=== PATIENT | male | born 1940 | race African-American/Black ===

== ENCOUNTER 2021-12-24 21:06 | Inpatient (IN) | payer MEDICARE, MEDICAID ==
[~2021-12-24] VITALS: Ht 175.3 cm; Wt 62.3 kg
[~2021-12-24 21:06] MED LIST: ACET325C PO; ALBU2.5V5 NEB; AMOX1TAB11 PO; ASCO500T4 PO; ASPI-482 PO; ASPI-630 PO; ATOR10TA60 PO; CALC-77 PO; CALC600T60 PO; CARV3.12 PO; ENOX40DI3 SQ; FOLI0.8T21 PO; FURO40TA4 PO; GUAI5LIQ PO; HTN med; HYDR12.575 PO; IPRA3AMP29 NEB; LOVA10TA PO; METO25TA4 PO; METO50TA6 PO; MULT1TAB50 PO; OXYC10TA PO; OXYC1TAB19 PO; OXYC5CAP PO; PANT40TA77 PO; POTA-121 PO; PRED-220 PO; PRED2.5T PO; PRED20TA PO; TAMS0.4C2 PO; TORS20TA2 PO
[2021-12-24 21:30] LABS: BASE EXCESS COOX -2 mmol/L (-3-3); HCO3 COOX 23 mmol/L (21-28); METHEMOGLOBIN 0.3 % (0.0-1.9); OXYHEMOGLOBIN 91.4 %; PCO2 COOX 41 mmHg (35-46); PO2 COOX 72 mmHg (65-108); SAT O2 COOX 92 % (92-99)
--- NOTE | 2021-12-24 21:31 | PHYS DOC ---
Past Medical History Past Medical History: Cancer, CHF, COPD, High Cholesterol, Hypertension Additional Past Medical Histor: Hepatitis C Past Surgical History: Hip Replacement, Other Additional Past Surgical Histo: BLEEDING ULCER, AV FISTULA LEFT ARM Smoking Status: Former Smoker Alcohol Use: Sober Drug Use: None General Adult EDM: Chief Complaint: DYSPNEA/RESPIRATORY DISTRESS HPI: HPI: Patient is a 81 year old male with history of afib, heart failure, COPD, and ESRD on hemodialysis who presents to ED via EMS with shortness of breath. Around 9 am, he started to develop shortness of breath while watching TV. Also, his SBP was elevated in the 200s at the time. Initially, his symptoms improved after receiving medications. Later in the day, his shortness of breath wo rsened, he was placed on 3 L NC, and EMS was called. Upon EMS arrival, spO2 was in the 70s and was placed on NRB. Associated symptoms included lightheadedness, dyspnea on exertion, and weakness. He denies sick contacts, fevers, chills, cough, nausea, vomiting, and abdominal pain. He recieves hemodialysis on MWF and produces a small amount of urine. Of note, he was positive for COVID about a month ago. Review of Systems: Review of Systems: Constitutional: Positive weight loss. Denies fever or chills. Eyes: Denies change in visual acuity. HENT: Denies nasal congestion or sore throat. Respiratory: Denies cough. Positive for shortness of breath. Cardiovascular: Denies chest pain or edema. Positive for dyspnea on exertion GI: Denies abdominal pain, nausea, vomiting, bloody stools or diarrhea. : Positive oliguria. Musculoskeletal: Denies back pain or joint pain. Integument: Denies rash. Neurologic: Denies headache and sensory changes. Positive for focal weakness and lightheadedness Endocrine: Denies polyuria or polydipsia. Lymphatic: Denies swollen glands. Psychiatric: Denies depression or anxiety. Heart Score: C/O Chest Pain: N/A Risk Factors: Risk Factors: DM, Current or recent (<one month) smoker, HTN, HLP, family history of CAD, obesity. Risk Scores: Score 0 - 3: 2.5% MACE over next 6 weeks - Discharge Home Score 4 - 6: 20.3% MACE over next 6 weeks - Admit for Clinical Observation Score 7 - 10: 72.7% MACE over next 6 weeks - Early Invasive Strategies Allergies: Allergies: Allergies Coded Allergies Type Severity Reaction Last Updated Verified No Known Medication Allergies Allergy Unknown 06/02/16 Yes Physical Exam: PE: Constitutional: respiratory distress, alert, awake HENT: Normocephalic, atraumatic, bilateral external ears normal, oropharynx moist, no oral exudates, nose normal. Eyes: PERRLA, EOMI, conjunctiva normal, no discharge. Neck: Normal range of motion, no tenderness, supple, no stridor. Cardiovascular: increased rate, irregularly irregular rhythm, no murmurs Lungs & Thorax: accessory muscles are in use, decreased air movement throughout, expiratory rhonci throughout Abdomen: Bowel sounds normal, soft, no tenderness, no masses, no pulsatile masses. Skin: Cool, dry, no erythema, no rash. Back: No tenderness, no CVA tenderness. Extremities: No tenderness, no cyanosis, no clubbing, ROM intact, trace bilateral pedal edema. Fistual in left upper extremity Neurologic: Alert and oriented X 3, normal motor function, normal sensory function, no focal deficits noted. Psychologic: Affect normal, judgement normal, mood normal. Current Patient Data: Vital Signs: Vital Signs Date Time Temp Pulse Resp B/P (MAP) Pulse Ox O2 Delivery O2 Flow Rate FiO2 12/24/21 21:15 97.6 130 29 157/71 (99) 95 NonRebreather Mask 9.0 97.6 EKG: EKG: [] Performed at 2113 Rate [address] RVR No [address] elevation No ST depression No acute [place] Radiology/Procedures: Radiology/Procedures: [] Impression: Wet read chest x-ray Cardiomegaly Blebs Questionable effusion left lower lobe Course & Med Decision Making: Course & Med Decision Making Pertinent Labs and Imaging studies reviewed. (See chart for details) [] Patient was evaluated for chief complaint. Work-up consisted of laboratory analysis radiologic imaging and EKG. Results reviewed and discussed with patient. Shortly after arrival patient was placed on BiPAP. Patient was found to have a heart rate in the 130s 140s suspected A. fib RVR. Once placed on BiPAP patient's heart rate improved to low 100s. Elected to treat patient with a dose of Cardizem 20 mg IV push. Patient's heart rate improved to the 90s appears to be sinus. Patient admitted to the hospitalist with cardiology and nephrology consults. Dm Disclaimer: Dm Disclaimer: This electronic medical record was generated, in whole or in part, using a voice recognition dictation system. Departure Departure Impression: Primary Impression: Atrial fibrillation with RVR Additional Impressions: CHF exacerbation Renal failure Disposition: ADMITTED INPATIENT Condition: STABLE Referrals: UNKNOWN PCP NAME (PCP) PATI GOMEZ DO Dec 24, 2021 21:31
[2021-12-24 21:46] LABS: BASO # 0.1 x10^3/uL (0.0-0.2); BASO % 1 % (0-3); EOS % 0 % (0-3); HEMATOCRIT 35.8 % (39.0-53.0); HEMOGLOBIN 11.3 g/dL (13.0-17.5); LYMPH # 1.1 x10^3/uL (1.0-4.8); LYMPH % 9 % (24-48); MEAN CORPUSCULAR HEMOGLOBIN 30 pg (25-35); MEAN CORPUSCULAR HGB CONC 32 g/dL (31-37); MEAN CORPUSCULAR VOLUME 93 fL (79-100); MONO # 0.4 x10^3/uL (0.0-1.1); MONO % 4 % (0-9); NEUT # 10.4 x10^3/uL (1.8-7.7); NEUT % 86 % (31-73); PLATELET COUNT 301 x10^3/uL (140-400); RED BLOOD COUNT 3.83 x10^6/uL (4.30-5.70); RED CELL DISTRIBUTION WIDTH 14.7 % (11.5-14.5)
[2021-12-24 21:52] LABS: CALCIUM 7.7 mg/dL (8.5-10.1); CREATININE 6.4 mg/dL (0.7-1.3); GFR 10.2; POTASSIUM 3.9 mmol/L (3.5-5.1)
[2021-12-24 21:54] LABS: ALBUMIN 2.9 g/dL (3.4-5.0); ALBUMIN/GLOBULIN RATIO 0.5 (1.0-1.7); MAGNESIUM 1.7 mg/dL (1.8-2.4); TOTAL BILIRUBIN 0.7 mg/dL (0.2-1.0); TOTAL PROTEIN 8.5 g/dL (6.4-8.2)
[2021-12-24] MEDS ORDERED: dilTIAZem HCL 125 MG in IV DEXTROSE 5% 100ML 100 ML IV PRN (22:45)
[2021-12-24 23:11] LABS: BASE EXCESS ABG 3 mmol/L (-3-3); HCO3 ABG 28 mmol/L (21-28); PCO2 ABG 42 mmHg (35-46); PO2 ABG 67 mmHg (65-108); SAT O2 ABG 92 % (92-99)
--- NOTE | 2021-12-24 23:17 | RAD ---
Exam: Chest one view INDICATION: Shortness of breath TECHNIQUE: Frontal view of the chest Comparisons: 03/24/2020 FINDINGS: The cardiomediastinal silhouette and pulmonary vessels are within normal limits. Extensive lower lobe airspace disease. No pleural fusion. IMPRESSION: Extensive by basilar airspace disease favored to be infectious or inflammatory in etiology. Electronically signed by: Geoffrey Martin MD (12/24/2021 11:15 PM) [facility]
[2021-12-24 23:43] VITALS: BP 103/72
--- NOTE | 2021-12-24 23:50 | NUR ---
The patient, GONZALEZ BEE, 81 y/o, M admitted by TAHIR VARNER MD, was given written information regarding hospital policies, unit procedures and contact persons. Valuable were checked and documented. Pt a/ox3, oriented to unit and staff. poc explained, pt verbalized understanding. History and assessment complete and documented. Pt on 4l nc, call light in reached will cont to monitor pt status and safety. pmrn
[2021-12-24 23:55] LABS: FIO2 ABG 40 (BIPAP)
[2021-12-25] MEDS ORDERED: HYDR-2761 PO (00:24)
[2021-12-25] MEDS ORDERED: OMEP20TA63 PO (00:24)
[2021-12-25] MEDS ORDERED: ACET325T9 PO (00:24)
[2021-12-25 03:00] VITALS: BP 101/61
--- NOTE | 2021-12-25 05:59 | EKG ---
[facility] [address] [place] [address] Test Date: 2021-12-24 Test Time: 21:13:24 Pat Name: GONZALEZ BEE Department: Room: 2 Gender: M Humanities Department Chair: : 1940 Requested By: PATI GOMEZ Order Number: [id number] Reading MD: Benito Bolaños MD Measurements Intervals [place] Rate: 139 P: 0 MD: 64 QRS: 57 QRSD: 90 T: -148 QT: 230 QTc: 354 Interpretive Statements Probable atrial fibrillation/SVT Electronically Signed On 12-27-2021 17:55:53 CDT by Benito Bolaños MD
[2021-12-25 07:00] VITALS: BP 144/81
[2021-12-25] MEDS ORDERED: IV NORMAL SALINE 1000ML BAG 1,000 ML IV PRN ×2 (08:30)
[2021-12-25] MEDS ORDERED: DIALYSIS PATIENT. MC PRN (08:30)
--- NOTE | 2021-12-25 08:31 | PDOC1 ---
History and Physical Date of Admission Date of Admission DATE: 12/25/21 TIME: 08:30 Identification/Chief Complaint Chief Complaint Shortness of breath Source Source: Patient History of Present Illness History of Present Illness Mr Amin is an 81 yo male with history of afib, heart failure, COPD, and ESRD on hemodialysis who presents to ED via EMS with shortness of breath. At 0900 on 12/24/21 he started to develop shortness of breath while watching TV and notes his blood pressure was systolic in the 200s. He normally wears 3 L/min nasal cannula oxygen but upon EMS arrival, spO2 was in the 70s and was placed on NRB. He denies sick contacts, fevers, chills, cough, nausea, vomiting, and abdominal pain. He receives hemodialysis on MWF and produces a small amount of urine. Of note, he was positive for COVID about a month ago at [facility] and has been rehabilitating in SNF. 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 He was noted to be in atrial fibrillation with rapid ventricular response, given IV cardizem bolus and improved, seen on dialysis in sinus rhythm. Chest radiograph with bibasilar airspace disease Labs WBC 12, Hb 11.3, platelets 301, NA 139, K3.9, BUN 23, creatinine 6.4, glucose 138, calcium 7.7, magnesium 1.7, albumin 2.9 LFTs otherwise within normal laboratory limits, high-sensitivity troponin is 217, NT proBNP is greater than 35,000, rapid COVID-19 is negative, ABG on 9 L 7.37/41/72. Admitted for further care with pulmonology cardiology and nephrology consultation Past Medical History Cardiovascular: CHF, HTN, Pulmonary hypertension Pulmonary: COPD, Pneumonia CENTRAL NERVOUS SYSTEM: Dementia GI: GERD, GI bleed, Peptic Ulcer disease Heme/Onc: No pertinent hx Hepatobiliary: Hep A/B/C Psych: No pertinent hx Musculoskeletal: Osteoarthritis Rheumatologic: No pertinent hx Infectious disease: No pertinent hx Renal/: Chronic renal insuff, Prostate Ca. Endocrine: No pertinent hx Past Surgical History Past Surgical History: Other Family History Family History: Diabetes, Heart Disease, Hypertension Social History Smoke: No ALCOHOL: none Drugs: Heroin Current Problem List Problem List Problems Medical Problems: (1) Atrial fibrillation with RVR Status: Acute (2) CHF exacerbation Status: Acute (3) Renal failure Status: Acute Current Medications Current Medications Current Medications Diltiazem HCl (Cardizem Iv Push) 20 mg 1X ONCE IVP Last administered on 12/24/21at 22:50; Start 12/24/21 at 22:45; Stop 12/24/21 at 22:46; Status DC Diltiazem HCl 125 mg/Sodium Chloride 125 ml @ 5 mls/hr CONT PRN IV PER PROTOCOL; Start 12/24/21 at 22:45; Status Cancel Diltiazem HCl 125 mg/Dextrose 125 ml @ 5 mls/hr CONT PRN IV PER PROTOCOL; Start 12/24/21 at 22:45 Active Scripts Active Karla-Yamileth Tablet (Folic Acid/Vitamin B Comp W-C) 0.8 Mg Tablet 1 Tab PO DAILY Reported Tylenol (Acetaminophen) 325 Mg Tablet 325 Tab PO QID PRN Prilosec Otc (Omeprazole Magnesium) 20 Mg Tablet.dr 1 Tab PO DAILY 30 Days Hydrocodone-Apap 5-325 (Hydrocodone Bit/Acetaminophen) 1 Tab Tablet 1 Tab PO PRN Q6HRS PRN Metoprolol Tartrate 50 Mg Tablet 1 Tab PO BID Aspirin 81 Mg Tab.chew 1 Tab PO DAILY Albuterol Sulfate Neb Soln (Albuterol Sulfate) 2.5 Mg/3 Ml Vial.neb 2.5 Mg NEB PRN Q4HRS PRN Vitamin C (Ascorbic Acid) 500 Mg Tablet 500 Mg PO BID Atorvastatin Calcium 10 Mg Tablet 10 Mg PO HS Allergies Allergies: Coded Allergies: No Known Medication Allergies (Verified Allergy, Unknown, 06/02/16) ROS General: YES: Fatigue, Malaise; No: Chills, Night Sweats, Appetite, Other PSYCHOLOGICAL ROS: No: Anxiety, Behavioral Disorder, Concentration difficultie, Decreased libido, Depression, Disorientation, Hallucinations, Hostility, Irritablity, Memory difficulties, Mood Swings, Obsessive thoughts, Physical abuse, Sexual abuse, Sleep disturbances, Suicidal ideation, Other Eyes: No Blurry vision, No Decreased vision, No Double vision, No Dry eyes, No Excessive tearing, No Eye Pain, No Itchy Eyes, No Loss of vision, No Photophobia, No Scotomata, No Uses contacts, No Uses glasses, No Other HEENT: No: Heacaches, Visual Changes, Hearing change, Nasal congestion, Nasal discharge, Oral lesions, Sinus pain, Sore Throat, Epistaxis, Sneezing, Snoring, Tinnitus, Vertigo, Vocal changes, Other ALLERGY AND IMMUNOLOGY: No: Hives, Insect Bite Sensitivity, Itchy/Watery Eyes, Nasal Congestion, Post Nasal Drip, Seasonal Allergies, Other Hematological and Lymphatic: No: Bleeding Problems, Blood Clots, Blood Transfusions, Brusing, Night Sweats, Pallor, Swollen Lymph Nodes, Other ENDOCRINE: No: Breast Changes, Galactorrhea, Hair Pattern Changes, Hot Flashes, Malaise/lethargy, Mood Swings, Palpitations, Polydipsia/polyuria, Skin Changes, Temperature Intolerance, Unexpected Weight Changes, Other Breast: No New/Changing Breast Lumps, No Nipple changes, No Nipple discharge, No Other Respiratory: YES: Cough, Shortness of breath, SOB with excertion; No: Hemoptysis, Orthopnea, Pleuritic Pain, Sputum Changes, Stridor, Tachypnea, Wheezing, Other Cardiovascular: No Chest Pain, No Palpitations, No Orthopnea, No Paroxysmal Noc. Dyspnea, No Edema, No Lt Headedness, No Other Gastrointestinal: Yes Nausea; No Vomiting, No Abdominal Pain, No Diarrhea, No Constipation, No Melena, No Hematochezia, No Other Genitourinary: No Dysuria, No Frequency, No Incontinence, No Hematuria, No Retention, No Discharge, No Urgency, No Pain, No Flank Pain, No Other, No , No , No , No , No , No , No Musculoskeletal: No Gait Disturbance, No Joint Pain, No Joint Stiffness, No Joint Swelling, No Muscle Pain, No Muscular Weakness, No Pain In:, No Swelling In:, No Other Neurological: No Behavorial Changes, No Bowel/Bladder ControlChng, No Confusion, No Dizziness, No Gait Disturbance, No Headaches, No Impaired Coord/balance, No Memory Loss, No Numbness/Tingling, No Seizures, No Speech Problems, No Tremors, No Visual Changes, No Weakness, No Other Skin: No Dry Skin, No Eczema, No Hair Changes, No Lumps, No Mole Changes, No Mottling, No Nail Changes, No Pruritus, No Rash, No Skin Lesion Changes, No Other, No Acne Physical Exam General: Alert, Oriented X3, Cooperative, moderate distress HEENT: Atraumatic, PERRLA, EOMI, Mucous membr. moist/pink Lungs: Other (Bibasilar crackles) Heart: S1S2, RRR, no thrills, no rubs, no gallops, no murmurs Rectal Exam: not examined Extremities: No clubbing, No cyanosis, No edema, Normal pulses, No tenderness/swelling Skin: No rashes, No breakdown, No significant lesion Neuro: Normal gait, Normal speech, Strength at 5/5 X4 ext, Normal tone, Sensation intact, Cranial nerves 3-12 NL, Reflexes 2+ Psych/Mental Status: Mental status NL, Mood NL Vitals Vitals Vital Signs Date Time Temp Pulse Resp B/P (MAP) Pulse Ox O2 Delivery O2 Flow Rate FiO2 12/25/21 03:00 97.6 93 18 101/61 (74) 93 Nasal Cannula 4.0 97.6 Labs Labs Laboratory Tests Test 12/24/21 21:20 12/24/21 21:25 12/24/21 23:00 12/25/21 03:40 O2 Saturation 92 % (92-99) 92 % (92-99) Arterial Blood pH 7.37 (7.35-7.45) 7.44 (7.35-7.45) Arterial Blood pCO2 at Patient Temp 41 mmHg (35-46) 42 mmHg (35-46) Arterial Blood pO2 at Patient Temp 72 mmHg (65-108) 67 mmHg (65-108) Arterial Blood HCO3 23 mmol/L (21-28) 28 mmol/L (21-28) Arterial Blood Base Excess -2 mmol/L (-3-3) 3 mmol/L (-3-3) Oxyhemoglobin 91.4 % Methemoglobin 0.3 % (0.0-1.9) Carbon Monoxide, Quantitative 0.3 % (0.0-1.9) FiO2 56 (9l nrb) 40 (bipap) White Blood Count 12.0 x10^3/uL (4.0-11.0) Red Blood Count 3.83 x10^6/uL (4.30-5.70) Hemoglobin 11.3 g/dL (13.0-17.5) Hematocrit 35.8 % (39.0-53.0) Mean Corpuscular Volume 93 fL (79-100) Mean Corpuscular Hemoglobin 30 pg (25-35) Mean Corpuscular Hemoglobin Concent 32 g/dL (31-37) Red Cell Distribution Width 14.7 % (11.5-14.5) Platelet Count 301 x10^3/uL (140-400) Neutrophils (%) (Auto) 86 % (31-73) Lymphocytes (%) (Auto) 9 % (24-48) Monocytes (%) (Auto) 4 % (0-9) Eosinophils (%) (Auto) 0 % (0-3) Basophils (%) (Auto) 1 % (0-3) Neutrophils # (Auto) 10.4 x10^3/uL (1.8-7.7) Lymphocytes # (Auto) 1.1 x10^3/uL (1.0-4.8) Monocytes # (Auto) 0.4 x10^3/uL (0.0-1.1) Eosinophils # (Auto) 0.0 x10^3/uL (0.0-0.7) Basophils # (Auto) 0.1 x10^3/uL (0.0-0.2) Sodium Level 139 mmol/L (136-145) Potassium Level 3.9 mmol/L (3.5-5.1) Chloride Level 97 mmol/L (98-107) Carbon Dioxide Level 28 mmol/L (21-32) Anion Gap 14 (6-14) Blood Urea Nitrogen 23 mg/dL (8-26) Creatinine 6.4 mg/dL (0.7-1.3) Estimated GFR (Cockcroft-Gault) 10.2 BUN/Creatinine Ratio 4 (6-20) Glucose Level 138 mg/dL (70-99) Calcium Level 7.7 mg/dL (8.5-10.1) Magnesium Level 1.7 mg/dL (1.8-2.4) Total Bilirubin 0.7 mg/dL (0.2-1.0) Aspartate Amino Transf (AST/SGOT) 29 U/L (15-37) Alanine Aminotransferase (ALT/SGPT) 23 U/L (16-63) Alkaline Phosphatase 58 U/L (46-116) Troponin I High Sensitivity 217 ng/L (4-75) VM-Fsb-W-Type Natriuretic Peptide > 11242 pg/mL (0-449) Total Protein 8.5 g/dL (6.4-8.2) Albumin 2.9 g/dL (3.4-5.0) Albumin/Globulin Ratio 0.5 (1.0-1.7) SARS-CoV-2 Antigen (Rapid) Negative (NEGATIVE) Test 12/25/21 04:25 Magnesium Level 1.8 mg/dL (1.8-2.4) Laboratory Tests Test 12/24/21 21:20 12/24/21 21:25 12/24/21 23:00 12/25/21 03:40 O2 Saturation 92 % (92-99) 92 % (92-99) Arterial Blood pH 7.37 (7.35-7.45) 7.44 (7.35-7.45) Arterial Blood pCO2 at Patient Temp 41 mmHg (35-46) 42 mmHg (35-46) Arterial Blood pO2 at Patient Temp 72 mmHg (65-108) 67 mmHg (65-108) Arterial Blood HCO3 23 mmol/L (21-28) 28 mmol/L (21-28) Arterial Blood Base Excess -2 mmol/L (-3-3) 3 mmol/L (-3-3) Oxyhemoglobin 91.4 % Methemoglobin 0.3 % (0.0-1.9) Carbon Monoxide, Quantitative 0.3 % (0.0-1.9) FiO2 56 (9l nrb) 40 (bipap) White Blood Count 12.0 x10^3/uL (4.0-11.0) Red Blood Count 3.83 x10^6/uL (4.30-5.70) Hemoglobin 11.3 g/dL (13.0-17.5) Hematocrit 35.8 % (39.0-53.0) Mean Corpuscular Volume 93 fL (79-100) Mean Corpuscular Hemoglobin 30 pg (25-35) Mean Corpuscular Hemoglobin Concent 32 g/dL (31-37) Red Cell Distribution Width 14.7 % (11.5-14.5) Platelet Count 301 x10^3/uL (140-400) Neutrophils (%) (Auto) 86 % (31-73) Lymphocytes (%) (Auto) 9 % (24-48) Monocytes (%) (Auto) 4 % (0-9) Eosinophils (%) (Auto) 0 % (0-3) Basophils (%) (Auto) 1 % (0-3) Neutrophils # (Auto) 10.4 x10^3/uL (1.8-7.7) Lymphocytes # (Auto) 1.1 x10^3/uL (1.0-4.8) Monocytes # (Auto) 0.4 x10^3/uL (0.0-1.1) Eosinophils # (Auto) 0.0 x10^3/uL (0.0-0.7) Basophils # (Auto) 0.1 x10^3/uL (0.0-0.2) Sodium Level 139 mmol/L (136-145) Potassium Level 3.9 mmol/L (3.5-5.1) Chloride Level 97 mmol/L (98-107) Carbon Dioxide Level 28 mmol/L (21-32) Anion Gap 14 (6-14) Blood Urea Nitrogen 23 mg/dL (8-26) Creatinine 6.4 mg/dL (0.7-1.3) Estimated GFR (Cockcroft-Gault) 10.2 BUN/Creatinine Ratio 4 (6-20) Glucose Level 138 mg/dL (70-99) Calcium Level 7.7 mg/dL (8.5-10.1) Magnesium Level 1.7 mg/dL (1.8-2.4) Total Bilirubin 0.7 mg/dL (0.2-1.0) Aspartate Amino Transf (AST/SGOT) 29 U/L (15-37) Alanine Aminotransferase (ALT/SGPT) 23 U/L (16-63) Alkaline Phosphatase 58 U/L (46-116) Troponin I High Sensitivity 217 ng/L (4-75) BM-Zff-Q-Type Natriuretic Peptide > 83435 pg/mL (0-449) Total Protein 8.5 g/dL (6.4-8.2) Albumin 2.9 g/dL (3.4-5.0) Albumin/Globulin Ratio 0.5 (1.0-1.7) SARS-CoV-2 Antigen (Rapid) Negative (NEGATIVE) Test 12/25/21 04:25 Magnesium Level 1.8 mg/dL (1.8-2.4) VTE Prophylaxis Ordered VTE Prophylaxis Devices: No VTE Pharmacological Prophylaxi: Yes Assessment/Plan Assessment/Plan Acute on chronic hypoxic respiratory failure - likely secondary to congestive heart failure, triggered by atrial fibrillation with rapid ventricular response. Atrial fibrillation with rapid ventricular response - resolved with IV cardizem. Cardiology consulted ESRD - on HD MWF. Nephrology consulted Abnormal CXR - due to prior asbestosis, COPD and resolving COVID 19 infection Acute and chronic diastolic CHF; Echo 2019 with LVEF 50% Elevated troponin - likely type II, demand ischemia. [facility] 2015 without significant coronary artery disease per cardiology HTN - cont home meds HLD - statin Pulm HTN; echo 2019 PAP 44 mmHg and RV dilation Hypomagnesemia - replaced FEN - Renal cardiac diet PPX - heparin FULL CODE Dispo - inpatient Justifications for Admission Other Justification CARMEN GOEL MD Dec 25, 2021 08:31
[2021-12-25] MEDS ORDERED: ALBUTEROL SULFATE 2.5 MG/3 ML NEBU. NEB PRN (08:45)
[2021-12-25] MEDS: PANTOPRAZOLE 40 MG TABLET.DR. PO SCH (08:57)
[2021-12-25] MEDS: FOLIC/VIT B COMP W-C (RENAL) TABLET. PO SCH (08:57)
[2021-12-25] MEDS: HYDROcodone/APAP 5/325MG 1 TAB TABLET PO PRN (08:57)
[2021-12-25] MEDS: ASPIRIN CHEWABLE 81 MG TABLET. PO SCH (08:57)
[2021-12-25] MEDS: ASCORBIC ACID 500 MG TABLET PO SCH ×2 (08:57→21:30)
[2021-12-25] MEDS ORDERED: METOPROLOL TART IMMED RELEASE 50 MG TABLET. PO SCH (09:00)
--- NOTE | 2021-12-25 09:16 | PDOC2 ---
CONSULT Date of Consult Date of Consult DATE: 12/25/21 TIME: 09:16 Reason for Consult Reason for Consult: ESRD Identification/Chief Complaint Chief Complaint My shortness of breath is better now Source Source: Chart review, Patient History of Present Illness Reason for Visit: Patient is a 81 year old AA male with history of afib, heart failure, COPD, and ESRD on hemodialysis who presents to ED via EMS with shortness of breath. Around 9 am, he started to develop shortness of breath while watching TV. Also, his SBP was elevated in the 200s at the time. Initially, his symptoms improved after receiving medications. Later in the day, his shortness of breath worsened, he was placed on 3 L NC, and EMS was called. Upon EMS arrival, spO2 was in the 70s and was placed on NRB. Associated symptoms included lightheadedness, dyspnea on exertion, and weakness. He denies sick contacts, fevers, chills, cough, nausea, vomiting, and abdominal pain. He recieves hemodialysis on MWF and produces a small amount of urine. He was positive for COVID about a month ago. Seen during dialysis, states breathing better. Denies any CP/N/V. No F/C . Reports has some RRF, No Urinary complaints Past Medical History Cardiovascular: CHF, HTN, Pulmonary hypertension Pulmonary: COPD, Pneumonia CENTRAL NERVOUS SYSTEM: Dementia GI: GERD, GI bleed, Peptic Ulcer disease Heme/Onc: No pertinent hx Hepatobiliary: Hep A/B/C Psych: No pertinent hx Musculoskeletal: Osteoarthritis Rheumatologic: No pertinent hx Infectious disease: No pertinent hx Renal/: Chronic renal insuff, Prostate Ca. Endocrine: No pertinent hx Past Surgical History Past Surgical History: Other Family History Family History: Diabetes, Heart Disease, Hypertension Social History ALCOHOL: none Drugs: Heroin Lives: Alone Current Problem List Problem List Problems Medical Problems: (1) Atrial fibrillation with RVR Status: Acute (2) CHF exacerbation Status: Acute (3) Renal failure Status: Acute Current Medications Current Medications Current Medications Diltiazem HCl (Cardizem Iv Push) 20 mg 1X ONCE IVP Last administered on 12/24at 22:50; Start 12/24/21 at 22:45; Stop 12/24/21 at 22:46; Status DC Diltiazem HCl 125 mg/Sodium Chloride 125 ml @ 5 mls/hr CONT PRN IV PER PROTOCOL; Start 12/24/21 at 22:45; Status Cancel Diltiazem HCl 125 mg/Dextrose 125 ml @ 5 mls/hr CONT PRN IV PER PROTOCOL; Start 12/24/21 at 22:45 Sodium Chloride 1,000 ml @ 1,000 mls/hr Q1H PRN IV hypotension; Start 12/25/21 at 08:30; Stop 12/25/21 at 14:29 Sodium Chloride 1,000 ml @ 400 mls/hr Q2H30M PRN IV PATENCY; Start 12/25/21 at 08:30; Stop 12/25/21 at 20:29 Info (PHARMACY MONITORING -- do not chart) 1 each PRN DAILY PRN MC SEE COMMENTS; Start 12/25/21 at 08:30 Albuterol Sulfate (Ventolin Neb Soln) 2.5 mg PRN Q4HRS PRN NEB SHORTNESS OF BREATH; Start 12/25/21 at 08:45 Ascorbic Acid (Vitamin C) 500 mg BID PO Last administered on 12/25/21at 08:57; Start 12/25/21 at 09:00 Aspirin (Aspirin Chewable) 81 mg DAILY PO Last administered on 12/25/21at 08:57; Start 12/25/21 at 09:00 Atorvastatin Calcium (Lipitor) 10 mg HS PO ; Start 12/25/21 at 21:00 Vitamin B Complex/ Vitamin C (Karla-Yamileth) 1 tab DAILY PO Last administered on 12/25/21at 08:57; Start 12/25/21 at 09:00 Acetaminophen/ Hydrocodone Bitart (Lortab 5/325) 1 tab PRN Q6HRS PRN PO PAIN Last administered on 12/25/21at 08:57; Start 12/25/21 at 08:45 Metoprolol Tartrate (Lopressor) 50 mg BID PO Last administered on 12/25/21at 08:57; Start 12/25/21 at 09:00 Pantoprazole Sodium (Protonix) 40 mg DAILYAC PO Last administered on 12/25/21at 08:57; Start 12/25/21 at 09:00 Active Scripts Active Karla-Aymileth Tablet (Folic Acid/Vitamin B Comp W-C) 0.8 Mg Tablet 1 Tab PO DAILY Reported Tylenol (Acetaminophen) 325 Mg Tablet 325 Tab PO QID PRN Prilosec Otc (Omeprazole Magnesium) 20 Mg Tablet. 1 Tab PO DAILY 30 Days Hydrocodone-Apap 5-325 (Hydrocodone Bit/Acetaminophen) 1 Tab Tablet 1 Tab PO PRN Q6HRS PRN Metoprolol Tartrate 50 Mg Tablet 1 Tab PO BID Aspirin 81 Mg Tab.chew 1 Tab PO DAILY Albuterol Sulfate Neb Soln (Albuterol Sulfate) 2.5 Mg/3 Ml Vial.neb 2.5 Mg NEB PRN Q4HRS PRN Vitamin C (Ascorbic Acid) 500 Mg Tablet 500 Mg PO BID Atorvastatin Calcium 10 Mg Tablet 10 Mg PO HS Allergies Allergies: Coded Allergies: No Known Medication Allergies (Verified Allergy, Unknown, 06/02/16) ROS Review of System As per HPI, rest of the ROS is negative Physical Exam Physical Exam General : NAD HENT: Normocephalic, atraumatic,OM moist Neck: supple, Cardiovascular irregularly irregular rhythm, no murmurs Lungs No use of accessory muscles , decreased at bases Abdomen: Bowel sounds normal, soft, no tenderness, no masses Skin: C dry, no erythema, no rash. : NoSP or CVA tenderness. Extremities: no cyanosis, no clubbing trace bilateral pedal edema. AV Fistual left upper extremity Neurologic: Alert and oriented X 3, normal motor function, normal sensory function, no focal deficits noted. Psychologic: Affect normal, judgement normal, mood normal. Vital Signs Vital Signs Date Time Temp Pulse Resp B/P (MAP) Pulse Ox O2 Delivery O2 Flow Rate FiO2 12/25/21 08:57 100 144/81 12/25/21 08:57 96 Nasal Cannula 6.0 12/25/21 07:00 97.2 26 97.2 Assessment & Plan ESRD - On HD since Aug 2020 Following [facility] ; MWF @ [facility] . Seen during dialysis. Tolerating well. Continue as ordered. Fred Rodríguez HTN BP very high POA, currently stable. Antihypertensives Hypomagnesemia - replace Anemia- Hgb at goal, No indication for BREN currently Acute on chronic hypoxic respiratory failure - likely secondary to congestive heart failure, triggered by atrial fibrillation with rapid ventricular response. Atrial fibrillation with rapid ventricular response - resolved with IV cardizem. Cardiology consulted Acute and chronic diastolic CHF; Echo 2019 with LVEF 50% Pulm HTN; echo 2020 PAP 44 mmHg and RV dilation Labs Labs Laboratory Tests Test 12/24/21 21:20 12/24/21 21:25 12/24/21 23:00 12/25/21 03:40 O2 Saturation 92 % (92-99) 92 % (92-99) Arterial Blood pH 7.37 (7.35-7.45) 7.44 (7.35-7.45) Arterial Blood pCO2 at Patient Temp 41 mmHg (35-46) 42 mmHg (35-46) Arterial Blood pO2 at Patient Temp 72 mmHg (65-108) 67 mmHg (65-108) Arterial Blood HCO3 23 mmol/L (21-28) 28 mmol/L (21-28) Arterial Blood Base Excess -2 mmol/L (-3-3) 3 mmol/L (-3-3) Oxyhemoglobin 91.4 % Methemoglobin 0.3 % (0.0-1.9) Carbon Monoxide, Quantitative 0.3 % (0.0-1.9) FiO2 56 (9l nrb) 40 (bipap) White Blood Count 12.0 x10^3/uL (4.0-11.0) Red Blood Count 3.83 x10^6/uL (4.30-5.70) Hemoglobin 11.3 g/dL (13.0-17.5) Hematocrit 35.8 % (39.0-53.0) Mean Corpuscular Volume 93 fL (79-100) Mean Corpuscular Hemoglobin 30 pg (25-35) Mean Corpuscular Hemoglobin Concent 32 g/dL (31-37) Red Cell Distribution Width 14.7 % (11.5-14.5) Platelet Count 301 x10^3/uL (140-400) Neutrophils (%) (Auto) 86 % (31-73) Lymphocytes (%) (Auto) 9 % (24-48) Monocytes (%) (Auto) 4 % (0-9) Eosinophils (%) (Auto) 0 % (0-3) Basophils (%) (Auto) 1 % (0-3) Neutrophils # (Auto) 10.4 x10^3/uL (1.8-7.7) Lymphocytes # (Auto) 1.1 x10^3/uL (1.0-4.8) Monocytes # (Auto) 0.4 x10^3/uL (0.0-1.1) Eosinophils # (Auto) 0.0 x10^3/uL (0.0-0.7) Basophils # (Auto) 0.1 x10^3/uL (0.0-0.2) Sodium Level 139 mmol/L (136-145) Potassium Level 3.9 mmol/L (3.5-5.1) Chloride Level 97 mmol/L (98-107) Carbon Dioxide Level 28 mmol/L (21-32) Anion Gap 14 (6-14) Blood Urea Nitrogen 23 mg/dL (8-26) Creatinine 6.4 mg/dL (0.7-1.3) Estimated GFR (Cockcroft-Gault) 10.2 BUN/Creatinine Ratio 4 (6-20) Glucose Level 138 mg/dL (70-99) Calcium Level 7.7 mg/dL (8.5-10.1) Magnesium Level 1.7 mg/dL (1.8-2.4) Total Bilirubin 0.7 mg/dL (0.2-1.0) Aspartate Amino Transf (AST/SGOT) 29 U/L (15-37) Alanine Aminotransferase (ALT/SGPT) 23 U/L (16-63) Alkaline Phosphatase 58 U/L (46-116) Troponin I High Sensitivity 217 ng/L (4-75) CA-Oti-D-Type Natriuretic Peptide > 13952 pg/mL (0-449) Total Protein 8.5 g/dL (6.4-8.2) Albumin 2.9 g/dL (3.4-5.0) Albumin/Globulin Ratio 0.5 (1.0-1.7) SARS-CoV-2 Antigen (Rapid) Negative (NEGATIVE) Test 12/25/21 04:25 Magnesium Level 1.8 mg/dL (1.8-2.4) Laboratory Tests Test 12/24/21 21:20 12/24/21 21:25 12/24/21 23:00 12/25/21 03:40 O2 Saturation 92 % (92-99) 92 % (92-99) Arterial Blood pH 7.37 (7.35-7.45) 7.44 (7.35-7.45) Arterial Blood pCO2 at Patient Temp 41 mmHg (35-46) 42 mmHg (35-46) Arterial Blood pO2 at Patient Temp 72 mmHg (65-108) 67 mmHg (65-108) Arterial Blood HCO3 23 mmol/L (21-28) 28 mmol/L (21-28) Arterial Blood Base Excess -2 mmol/L (-3-3) 3 mmol/L (-3-3) Oxyhemoglobin 91.4 % Methemoglobin 0.3 % (0.0-1.9) Carbon Monoxide, Quantitative 0.3 % (0.0-1.9) FiO2 56 (9l nrb) 40 (bipap) White Blood Count 12.0 x10^3/uL (4.0-11.0) Red Blood Count 3.83 x10^6/uL (4.30-5.70) Hemoglobin 11.3 g/dL (13.0-17.5) Hematocrit 35.8 % (39.0-53.0) Mean Corpuscular Volume 93 fL (79-100) Mean Corpuscular Hemoglobin 30 pg (25-35) Mean Corpuscular Hemoglobin Concent 32 g/dL (31-37) Red Cell Distribution Width 14.7 % (11.5-14.5) Platelet Count 301 x10^3/uL (140-400) Neutrophils (%) (Auto) 86 % (31-73) Lymphocytes (%) (Auto) 9 % (24-48) Monocytes (%) (Auto) 4 % (0-9) Eosinophils (%) (Auto) 0 % (0-3) Basophils (%) (Auto) 1 % (0-3) Neutrophils # (Auto) 10.4 x10^3/uL (1.8-7.7) Lymphocytes # (Auto) 1.1 x10^3/uL (1.0-4.8) Monocytes # (Auto) 0.4 x10^3/uL (0.0-1.1) Eosinophils # (Auto) 0.0 x10^3/uL (0.0-0.7) Basophils # (Auto) 0.1 x10^3/uL (0.0-0.2) Sodium Level 139 mmol/L (136-145) Potassium Level 3.9 mmol/L (3.5-5.1) Chloride Level 97 mmol/L (98-107) Carbon Dioxide Level 28 mmol/L (21-32) Anion Gap 14 (6-14) Blood Urea Nitrogen 23 mg/dL (8-26) Creatinine 6.4 mg/dL (0.7-1.3) Estimated GFR (Cockcroft-Gault) 10.2 BUN/Creatinine Ratio 4 (6-20) Glucose Level 138 mg/dL (70-99) Calcium Level 7.7 mg/dL (8.5-10.1) Magnesium Level 1.7 mg/dL (1.8-2.4) Total Bilirubin 0.7 mg/dL (0.2-1.0) Aspartate Amino Transf (AST/SGOT) 29 U/L (15-37) Alanine Aminotransferase (ALT/SGPT) 23 U/L (16-63) Alkaline Phosphatase 58 U/L (46-116) Troponin I High Sensitivity 217 ng/L (4-75) LQ-Wmy-Q-Type Natriuretic Peptide > 84696 pg/mL (0-449) Total Protein 8.5 g/dL (6.4-8.2) Albumin 2.9 g/dL (3.4-5.0) Albumin/Globulin Ratio 0.5 (1.0-1.7) SARS-CoV-2 Antigen (Rapid) Negative (NEGATIVE) Test 12/25/21 04:25 Magnesium Level 1.8 mg/dL (1.8-2.4) Review All relevant outside records, renal labs, imaging studies, telemetry/EKG's were reviewed. Images Images Exam: Chest one view INDICATION: Shortness of breath TECHNIQUE: Frontal view of the chest Comparisons: 03/24/2020 FINDINGS: The cardiomediastinal silhouette and pulmonary vessels are within normal limits. Extensive lower lobe airspace disease. No pleural fusion. IMPRESSION: Extensive by basilar airspace disease favored to be infectious or inflammatory in etiology. CHAPITO SWIFT MD Dec 25, 2021 09:16
--- NOTE | 2021-12-25 10:28 | PDOC2 ---
ELSY SINGLETON TRAIN CALLER 12/25/21 1028: CARDIAC CONSULT DATE OF CONSULT Date of Consult DATE: 12/25/21 TIME: 10:11 REASON FOR CONSULT Reason for Consult: CHF REFERRING PHYSICIAN Referring Physician: Dr. Mcgraw SOURCE Source: Chart review, Patient HISTORY OF PRESENT ILLNESS HISTORY OF PRESENT ILLNESS This is an 81 yo male who presented secondary to shortness of breath. Patient reports he has been short of breath for the last couple of days. Was much worse the day of arrival. He denies any dizziness, diaphoresis, chest pain, palpitations, or nausea/vomiting. Is ESRD on HD. Did miss a day last week but had full run on Thursday. Also had COVID about a month ago. Was noted in AFIB with RVR upon arrival. Was given IV Cardizem bolus. He did convert back to SR. Patient had 3 kilos removed in HD and is feeling much better. PAST MEDICAL HISTORY Past Medical History Cardiovascular: CHF, HTN, Pulmonary hypertension Pulmonary: COPD, Pneumonia GI: GERD, GI bleed, Peptic Ulcer disease Hepatobiliary: Hep A/B/C (C) Musculoskeletal: Osteoarthritis Renal/: Chronic renal insuff, Prostate Ca. PAST SURGICAL HISTORY Past Surgical History Other (duodenal ulcer repair)) FAMILY HISTORY Family History: Diabetes, Heart Disease, Hypertension SOCIAL HISTORY Social History Smoke: Quit ALCOHOL: none Drugs: Heroin (Past use- quit many years ago ) Lives: Alone CURRENT MEDICATIONS CURRENT MEDICATIONS Current Medications Medications (Trade) Dose Ordered Sig/Edith Route PRN Reason Start Time Stop Time Status Last Admin Dose Admin Diltiazem HCl (Cardizem Iv Push) 20 mg 1X ONCE IVP 12/24/21 22:45 12/24/21 22:46 DC 12/24/21 22:50 Ascorbic Acid (Vitamin C) 500 mg BID PO 12/25/21 09:00 12/25/21 08:57 Aspirin (Aspirin Chewable) 81 mg DAILY PO 12/25/21 09:00 12/25/21 08:57 Vitamin B Complex/ Vitamin C (Karla-Yamileth) 1 tab DAILY PO 12/25/21 09:00 12/25/21 08:57 Acetaminophen/ Hydrocodone Bitart (Lortab 5/325) 1 tab PRN Q6HRS PRN PO PAIN 12/25/21 08:45 12/25/21 08:57 Metoprolol Tartrate (Lopressor) 50 mg BID PO 12/25/21 09:00 12/25/21 08:57 Pantoprazole Sodium (Protonix) 40 mg DAILYAC PO 12/25/21 09:00 12/25/21 08:57 ALLERGIES ALLERGIES: Coded Allergies: No Known Medication Allergies (Verified Allergy, Unknown, 06/02/16) ROS Review of System 14 point ROS conducted with pertinent positives noted above in HPI PHYSICAL EXAM PHYSICAL EXAM General: Alert, Cooperative, No acute distress HEENT: Atraumatic, PERRLA Lungs: Other (diminished bases) Heart: Regular rate, Normal S1, Normal S2, Other (tele: SR) Abdomen: Normal bowel sounds, Soft Extremities: No edema Skin: No rashes Neuro: Normal speech Psych/Mental Status: Mental status NL, Mood NL MUSCULOSKELETAL: No deformity VITALS/I&O VITALS/I&O: Vital Signs Date Time Temp Pulse Resp B/P (MAP) Pulse Ox O2 Delivery O2 Flow Rate FiO2 12/25/21 09:27 96 Nasal Cannula 6.0 12/25/21 08:57 100 144/81 12/25/21 07:00 97.2 26 97.2 I & O 12/24/21 12/24/21 12/25/21 15:00 23:00 07:00 Intake Total 0 ml Output Total 0 ml Balance 0 ml LABS Lab: Laboratory Tests Test 12/24/21 21:20 12/24/21 21:25 12/24/21 23:00 12/25/21 03:40 O2 Saturation 92 % (92-99) 92 % (92-99) Arterial Blood pH 7.37 (7.35-7.45) 7.44 (7.35-7.45) Arterial Blood pCO2 at Patient Temp 41 mmHg (35-46) 42 mmHg (35-46) Arterial Blood pO2 at Patient Temp 72 mmHg (65-108) 67 mmHg (65-108) Arterial Blood HCO3 23 mmol/L (21-28) 28 mmol/L (21-28) Arterial Blood Base Excess -2 mmol/L (-3-3) 3 mmol/L (-3-3) Oxyhemoglobin 91.4 % Methemoglobin 0.3 % (0.0-1.9) Carbon Monoxide, Quantitative 0.3 % (0.0-1.9) FiO2 56 (9l nrb) 40 (bipap) White Blood Count 12.0 x10^3/uL (4.0-11.0) H Red Blood Count 3.83 x10^6/uL (4.30-5.70) L Hemoglobin 11.3 g/dL (13.0-17.5) L Hematocrit 35.8 % (39.0-53.0) L Mean Corpuscular Volume 93 fL (79-100) Mean Corpuscular Hemoglobin 30 pg (25-35) Mean Corpuscular Hemoglobin Concent 32 g/dL (31-37) Red Cell Distribution Width 14.7 % (11.5-14.5) H Platelet Count 301 x10^3/uL (140-400) Neutrophils (%) (Auto) 86 % (31-73) H Lymphocytes (%) (Auto) 9 % (24-48) L Monocytes (%) (Auto) 4 % (0-9) Eosinophils (%) (Auto) 0 % (0-3) Basophils (%) (Auto) 1 % (0-3) Neutrophils # (Auto) 10.4 x10^3/uL (1.8-7.7) H Lymphocytes # (Auto) 1.1 x10^3/uL (1.0-4.8) Monocytes # (Auto) 0.4 x10^3/uL (0.0-1.1) Eosinophils # (Auto) 0.0 x10^3/uL (0.0-0.7) Basophils # (Auto) 0.1 x10^3/uL (0.0-0.2) Sodium Level 139 mmol/L (136-145) Potassium Level 3.9 mmol/L (3.5-5.1) Chloride Level 97 mmol/L (98-107) L Carbon Dioxide Level 28 mmol/L (21-32) Anion Gap 14 (6-14) Blood Urea Nitrogen 23 mg/dL (8-26) Creatinine 6.4 mg/dL (0.7-1.3) H Estimated GFR (Cockcroft-Gault) 10.2 BUN/Creatinine Ratio 4 (6-20) L Glucose Level 138 mg/dL (70-99) H Calcium Level 7.7 mg/dL (8.5-10.1) L Magnesium Level 1.7 mg/dL (1.8-2.4) L Total Bilirubin 0.7 mg/dL (0.2-1.0) Aspartate Amino Transferase (AST) 29 U/L (15-37) Alanine Aminotransferase (ALT) 23 U/L (16-63) Alkaline Phosphatase 58 U/L (46-116) Troponin I High Sensitivity 217 ng/L (4-75) H SF-Hst-A-Type Natriuretic Peptide > 21916 pg/mL (0-449) H Total Protein 8.5 g/dL (6.4-8.2) H Albumin 2.9 g/dL (3.4-5.0) L Albumin/Globulin Ratio 0.5 (1.0-1.7) L SARS-CoV-2 Antigen (Rapid) Negative (NEGATIVE) Test 12/25/21 04:25 Magnesium Level 1.8 mg/dL (1.8-2.4) Laboratory Tests 12/24/21 21:25 Laboratory Tests 12/24/21 21:25 ECHOCARDIOGRAM ECHOCARDIOGRAM <Conclusion> The left ventricular systolic function is normal and the ejection fraction is within normal range. The Ejection Fraction is 50%. Transmitral Doppler flow pattern is Grade I-abnormal relaxation pattern. There is concentric LVH The right ventricle is dilated. The left atrium is dilated. The right atrium is mildly dilated. The aortic valve is mildly sclerotic. Doppler and Color Flow revealed moderate to severe mitral regurgitation. The mitral valve leaflets are thickened. Doppler and Color Flow revealed moderate tricuspid regurgitation. The pulmonary artery systolic pressure is estimated at 56 mmHg. There is severe pulmonary hypertension. The pulmonic valve was poorly visualized There is no evidence of significant pericardial effusion. DATE: 11/14/16 1619 <Conclusion> The left ventricular systolic function is normal and the ejection fraction is within normal range. The Ejection Fraction is 50%. Wall motion consistent with conduction abnormality. Otherwise, grossly normal. The right ventricle is moderately dilated. Doppler and Color Flow revealed trace tricuspid regurgitation with an estimated PAP of 44 mmHg. Technically very difficult study DATE: 08/14/20 1704 STRESS TEST STRESS TEST Conclusion 1. No electrocardiographic changes suggestive of myocardial ischemia with pharmacological sress. 2. No significant perfusion defects to suggest myocardial ischemia or scar 3. Normal wall motion and wall thickening with an ejection fraction of 77%. 4. Scan indicates low risk for future cardiac events. DATE: 10/31/162027 HEART CATH HEART CATH CORONARY ANGIOGRAPHY: LM is a large short caliber vessel with normal angiographic appearance. LAD is a large caliber vessel with normal angiographic appearance that is hyperdominant and wraps around the apex. D1 is a moderate caliber vessel with normal angiographic apeparance. LCx is a moderate caliber non-dominant vessel with normal angiographic appearance. OM1 is a moderate caliber vessel with normal angiographic appearance. RCA is a moderate caliber non-dominant vessel with normal angiographic appearance. Conclusion 1. Mildly elevated biventricular filling pressures. 2. Mild to moderate pulmonary HTN. 3. Normal cardiac output. 4. No significant coronary artery disease. Recommendations Aggressive Medical Therapy DATE: 03/17/16 1744 ASSESSMENT/PLAN ASSESSMENT/PLAN 1. Acute on chronic respiratory failure; multifactorial with CHF, AFIB with RVR. Also with underling COPD and recent COVID infection 2. Acute and chronic diastolic CHF; Echo 2019 with LVEF 50% as noted above 3. AFIB with RVR; ? new onset. Converted back to SR with Cardizem bolus. Is maintaining SR 4. Elevated troponin; initial high sensitivity trop 217. Most probably type II, demand ischemia. [facility] 2015 without significant coronary artery disease. 5. Hypertension; controlled 6. Hyperlipidemia; statin 6. Pulm HTN; echo 2019 PAP 44 mmHg and RV dilation 7. Hypomagnesemia Recommendations Trend troponin TSH, lipids Metoprolol for rate control; will increase for better rate control Fluid offloading via HD Echo to end intact LV systolic function ASA therapy Outpatient event monitor to assess AFIB burden, guide therapy. Outpatient ischemic evaluation NIELS GRAFF MD 12/25/210: CARDIAC CONSULT ASSESSMENT/PLAN ASSESSMENT/PLAN Patient seen and examined. Agree with above nurse practitioner note. Echocardiogram reviewed. Patient has cor pulmonale with moderate to severe RV dilation and right ventricular hypertrophy Continue rate control with metoprolol. Patient has mild hypotension and may not be able to tolerate aggressive medical therapy. Would consider initiation of anti arrhythmic drug therapy but given his renal insufficiency options are limited especially in light of his COPD. Amiodarone would be the only choice really available at this time. If needed we could consider antiarrhythmic drugs but for now continue metoprolol therapy. Supportive care. NSTEMI likely type 2 but cannot rule out progressive CAD given risk factors. Consider outpt ischemic evaluation. Thanks ELSY SINGLETON APRN Dec 25, 2021 10:28 NIELS GRAFF MD Dec 25, 2021 21:57
--- NOTE | 2021-12-25 10:39 | CONS ---
DATE OF CONSULTATION: 12/25/2021 PULMONARY CONSULTATION ATTENDING PHYSICIAN: Dr. Pineda. REASON FOR CONSULTATION: Dyspnea, respiratory failure. HISTORY OF PRESENT ILLNESS: The patient is an 81-year-old male who has a history of end-stage renal disease, history of COPD, history of asbestos exposure. He is on home oxygen at 3 liters. He was brought into the hospital with complaint of shortness of breath. He was noted to have saturations in the 70s when the EMS arrived. He was placed on a nonrebreather mask. He also had some lightheadedness. The patient is fully vaccinated with COVID. Denies any cough, chest pain. No leg edema. No nausea, vomiting, no diarrhea, no dysuria. He has not missed any dialysis session. He was positive for COVID about a month ago. His chest x-ray was reviewed. It was abnormal and he was noted to have increased interstitial infiltrates in the right lung along with right lower lobe pleural effusion. He also has an air pocket in the left lung, which could be a loculated pneumothorax. He is currently undergoing dialysis. He was noted to be in atrial fibrillation with rapid ventricular response. PAST MEDICAL HISTORY: Significant for history of COPD, history of chronic respiratory failure, history of end-stage renal disease, history of dyslipidemia, hepatitis C, history of COVID a month ago. PAST SURGICAL HISTORY: Hip replacement, bleeding ulcers and AV fistula. SOCIAL HISTORY: Smoker for 35 years before quitting. He also has asbestos exposure for 20 years. MEDICATIONS: Reviewed as listed in the MRAD including Cardizem drip per protocol. REVIEW OF SYSTEMS: Twelve-point review of system obtained. Pertinent positives discussed in my present illness, otherwise noncontributory. All systems that were negative were reviewed as well. FAMILY HISTORY: Noncontributory to lungs. PHYSICAL EXAMINATION: VITAL SIGNS: Reviewed. Pulse ox 96% on 6 liters, afebrile. NECK: Supple. LUNGS: With diminished breath sounds bilaterally. CARDIOVASCULAR: With a regular rate. ABDOMEN: Soft, nontender. EXTREMITIES: With no pitting edema. LABORATORY DATA: Reviewed. COVID rapid is negative. BUN 23, creatinine 6.4. Troponin 217. ABGs with a pH of 7.37, pCO2 of 41 and a pO2 of 72 on 9 liters. White cell count 12.0, hemoglobin 11.3, platelets are 301. IMPRESSION: 1. Acute on chronic hypoxic respiratory failure secondary to asymmetric congestive heart failure, triggered by atrial fibrillation with rapid ventricular response. 2. Atrial fibrillation with rapid ventricular response. 3. End-stage renal disease, on hemodialysis, currently undergoing increased ultrafiltration. 4. Abnormal chest x-ray with vascular congestion on the right side along with right lower lobe effusion. He also has a pocket of air on the left side, which could be a loculated pneumothorax versus emphysematous blebs. RECOMMENDATIONS: 1. Discussed with the patient. At this time, would recommend to continue ultrafiltration with hemodialysis. 2. Follow chest x-rays. 3. May need a CT chest if radiographic findings does not improve. I will also assess the need for any future thoracentesis. 4. Monitor white cell count, likely reactive. At this point, withhold antibiotic. 5. Follow Cardiology recommendations regarding atrial fibrillation with RVR. Currently on Cardizem. 6. Follow renal function. 7. Discussed with RN. We will follow along with you. DANIELA DR: Marla TID: [id number]
[2021-12-25 11:19] LABS: CALCIUM 7.8 mg/dL (8.5-10.1); CREATININE 6.9 mg/dL (0.7-1.3); GFR 9.4; POTASSIUM 4.4 mmol/L (3.5-5.1)
--- NOTE | 2021-12-25 12:23 | NUR ---
SS following for discharge planning. SS reviewed pt chart and discussed with pt RN. Pt is skilled rehabilitation resident from [facility] in [place], [place], ; fax [phone]. Per facility, pt was scheduled to discharge to home this Thursday. Pt is currently requiring oxygen at six liters nasal canula. Pt has home oxygen (baseline three liters). Pt has outpatient hemodialysis at [facility], ; fax [phone], Thursday, Thursday, and Thursday. PT/OT ordered. Nephrology, Cardiology, and Pulmonology following. SS will continue to follow for discharge planning.
[2021-12-25] MEDS ORDERED: METOPROLOL TART IMMED RELEASE 25 MG TABLET. PO ONE (14:00)
[2021-12-25 15:00] VITALS: BP 107/68
--- NOTE | 2021-12-25 17:04 | CARD ---
MR#: [id number] Date of Study: 12/25/2021 Ordering Physician: ELSY SINGLETON, Referring Physician: ELSY SINGLETON, Tech: Yogesh [facility] APPROVED REPORT EXAM: Two-dimensional and M-mode echocardiogram with Doppler and color Doppler. Other Information Quality : AverageHR: 82bpm Rhythm : NSR INDICATION Atrial Fibrillation RISK FACTORS Hypertension Smoking COPD, End stage renal disease. 2D DIMENSIONS RVDd4.3 (2.9-3.5cm)IVSd1.2 (0.7-1.1cm) LVDd3.8 (3.9-5.9cm)LVOT Diameter1.8 (1.8-2.4cm) PWd1.2 (0.7-1.1cm)LA Vaylhh41 (18-58mL) LVDs2.3 (2.5-4.0cm)FS (%) 39.7 % SV43.7 ml Mitral Valve MV E Bovecemd10.3cm/sMV E Peak Gr.3mmHg MV DECEL [id number] A Bjjoubsa24.4cm/s MV E Mean Gr.1mmHgE/A Ratio0.9 TDI Lateral E' P. V10.55cm/sMedial E' P. V5.73cm/s E/Lateral E'6.1E/Medial E'11.2 Tricuspid Valve TR P. Yfypcdkd697st/sTR Peak Gr.55mmHg Pulmonary Vein S1 Fywgttiv41.4cm/sS2 Xsluwajw74.18cm/s D2 Lfdsqcfn15.2cm/s LEFT VENTRICLE The left ventricle is normal size. There is mild concentric left ventricular hypertrophy. The left ve ntricular systolic function is normal and the ejection fraction is within normal range. LV ejection f raction of 50 to 55%. There is normal LV segmental wall motion. No left ventricle thrombus noted on t his study. There is no ventricular septal defect visualized. There is no left ventricular aneurysm. T here is no mass noted in the left ventricle. RIGHT VENTRICLE The right ventricle is moderately dilated. There is normal right ventricular wall thickness. Systolic function is borderline reduced. ATRIA The left atrium is mild to moderately dilated. The right atrium is mildly dilated. The interatrial se ptum is intact with no evidence for an atrial septal defect or patent foramen ovale as noted on 2-D o r Doppler imaging. AORTIC VALVE The aortic valve is mildly thickened but opens well. The aortic valve is trileaflet. Doppler and [place] r Flow revealed no significant aortic regurgitation. There is no significant aortic valvular stenosis . There is no aortic valvular vegetation. MITRAL VALVE The mitral valve is thickened but opens well. There is no evidence of mitral valve prolapse. There is no mitral valve stenosis. Doppler and Color-flow revealed mild to moderate mitral regurgitation. TRICUSPID VALVE The tricuspid valve leaflets are thickened , but open well. Doppler and Color Flow revealed moderate tricuspid regurgitation. The PA pressure was estimated at 50 mmHg. There is no tricuspid valve prolap se or vegetation. There is no tricuspid valve stenosis. PULMONIC VALVE The pulmonary valve is normal in structure and function. Doppler and Color Flow revealed no pulmonic valvular regurgitation. There is no pulmonic valvular stenosis. GREAT VESSELS The aortic root is normal in size. The ascending aorta is normal in size. The pulmonary artery is nor mal. The IVC is normal in size and collapses >50% with inspiration. PERICARDIAL EFFUSION Pleural effusion noted. There is no evidence of significant pericardial effusion. Critical Notification Critical Value: No <Conclusion> The left ventricle is normal size. The left ventricular systolic function is normal and the ejection fraction is within normal range. LV ejection fraction of 50 to 55%. There is mild concentric left ventricular hypertrophy. Doppler and Color Flow revealed no significant aortic regurgitation. There is no significant aortic valvular stenosis. Doppler and Color-flow revealed mild to moderate mitral regurgitation. Doppler and Color Flow revealed moderate tricuspid regurgitation. The PA pressure was estimated at 50 mmHg. Pleural effusion noted. Signed by : Maxwell Stafford MD Electronically Approved : 12/25/2021 17:04:21
[2021-12-25 19:00] VITALS: BP 88/56
[2021-12-25] MEDS ORDERED: ATORVASTATIN CALCIUM 10 MG TABLET. PO SCH (21:00)
[2021-12-25] MEDS: METOPROLOL TART IMMED RELEASE 50 MG TABLET. PO SCH (21:00)
[2021-12-25 22:52] VITALS: BP 108/58
[2021-12-26 02:14] VITALS: BP 104/58
[2021-12-26] MEDS: PANTOPRAZOLE 40 MG TABLET.DR. PO SCH (05:40)
[2021-12-26 07:00] VITALS: BP 125/76
[2021-12-26] MEDS: HYDROcodone/APAP 5/325MG 1 TAB TABLET PO PRN (08:10)
[2021-12-26] MEDS: ASPIRIN CHEWABLE 81 MG TABLET. PO SCH (08:10)
[2021-12-26] MEDS: FOLIC/VIT B COMP W-C (RENAL) TABLET. PO SCH (08:10)
[2021-12-26] MEDS: ASCORBIC ACID 500 MG TABLET PO SCH (08:10)
[2021-12-26] MEDS: METOPROLOL TART IMMED RELEASE 50 MG TABLET. PO SCH (08:12)
--- NOTE | 2021-12-26 08:38 | PDOC ---
PULMONARY PROGRESS NOTES DATE: 12/26/21 TIME: 08:37 Subjective Patient remains on 5 L nasal cannula, reports intermittent shortness of breath especially with exertion. Feeling somewhat better status post hemodialysis yesterday Afebrile, no overnight concerns from nursing Vitals Vital Signs Date Time Temp Pulse Resp B/P (MAP) Pulse Ox O2 Delivery O2 Flow Rate FiO2 12/26/21 08:12 96 125/76 12/26/21 08:10 17 96 Nasal Cannula 5.0 12/26/21 02:14 97.5 97.5 ROS: No Nausea, No Chest Pain, No Abdominal Pain, No Increase Cough General: Alert, Oriented X4, No acute distress Lungs: Crackles (RLL) Cardiovascular: S1 Abdomen: Other Neuro Exam: Alert, Oriented Extremities: No Edema Labs Laboratory Tests Test 12/24/21 21:20 12/24/21 21:25 12/24/21 23:00 12/25/21 03:40 O2 Saturation 92 % (92-99) 92 % (92-99) Arterial Blood pH 7.37 (7.35-7.45) 7.44 (7.35-7.45) Arterial Blood pCO2 at Patient Temp 41 mmHg (35-46) 42 mmHg (35-46) Arterial Blood pO2 at Patient Temp 72 mmHg (65-108) 67 mmHg (65-108) Arterial Blood HCO3 23 mmol/L (21-28) 28 mmol/L (21-28) Arterial Blood Base Excess -2 mmol/L (-3-3) 3 mmol/L (-3-3) Oxyhemoglobin 91.4 % Methemoglobin 0.3 % (0.0-1.9) Carbon Monoxide, Quantitative 0.3 % (0.0-1.9) FiO2 56 (9l nrb) 40 (bipap) White Blood Count 12.0 x10^3/uL (4.0-11.0) Red Blood Count 3.83 x10^6/uL (4.30-5.70) Hemoglobin 11.3 g/dL (13.0-17.5) Hematocrit 35.8 % (39.0-53.0) Mean Corpuscular Volume 93 fL (79-100) Mean Corpuscular Hemoglobin 30 pg (25-35) Mean Corpuscular Hemoglobin Concent 32 g/dL (31-37) Red Cell Distribution Width 14.7 % (11.5-14.5) Platelet Count 301 x10^3/uL (140-400) Neutrophils (%) (Auto) 86 % (31-73) Lymphocytes (%) (Auto) 9 % (24-48) Monocytes (%) (Auto) 4 % (0-9) Eosinophils (%) (Auto) 0 % (0-3) Basophils (%) (Auto) 1 % (0-3) Neutrophils # (Auto) 10.4 x10^3/uL (1.8-7.7) Lymphocytes # (Auto) 1.1 x10^3/uL (1.0-4.8) Monocytes # (Auto) 0.4 x10^3/uL (0.0-1.1) Eosinophils # (Auto) 0.0 x10^3/uL (0.0-0.7) Basophils # (Auto) 0.1 x10^3/uL (0.0-0.2) Sodium Level 139 mmol/L (136-145) Potassium Level 3.9 mmol/L (3.5-5.1) Chloride Level 97 mmol/L (98-107) Carbon Dioxide Level 28 mmol/L (21-32) Anion Gap 14 (6-14) Blood Urea Nitrogen 23 mg/dL (8-26) Creatinine 6.4 mg/dL (0.7-1.3) Estimated GFR (Cockcroft-Gault) 10.2 BUN/Creatinine Ratio 4 (6-20) Glucose Level 138 mg/dL (70-99) Calcium Level 7.7 mg/dL (8.5-10.1) Magnesium Level 1.7 mg/dL (1.8-2.4) Total Bilirubin 0.7 mg/dL (0.2-1.0) Aspartate Amino Transf (AST/SGOT) 29 U/L (15-37) Alanine Aminotransferase (ALT/SGPT) 23 U/L (16-63) Alkaline Phosphatase 58 U/L (46-116) Troponin I High Sensitivity 217 ng/L (4-75) TA-Uoh-Q-Type Natriuretic Peptide > 59976 pg/mL (0-449) Total Protein 8.5 g/dL (6.4-8.2) Albumin 2.9 g/dL (3.4-5.0) Albumin/Globulin Ratio 0.5 (1.0-1.7) Coronavirus (COVID-19)(PCR) Positive (NOT DETECTD) SARS-CoV-2 Antigen (Rapid) Negative (NEGATIVE) Test 12/25/21 04:25 12/25/21 14:30 Sodium Level 143 mmol/L (136-145) Potassium Level 4.4 mmol/L (3.5-5.1) Chloride Level 100 mmol/L (98-107) Carbon Dioxide Level 31 mmol/L (21-32) Anion Gap 12 (6-14) Blood Urea Nitrogen 25 mg/dL (8-26) Creatinine 6.9 mg/dL (0.7-1.3) Estimated GFR (Cockcroft-Gault) 9.4 Glucose Level 90 mg/dL (70-99) Calcium Level 7.8 mg/dL (8.5-10.1) Magnesium Level 1.8 mg/dL (1.8-2.4) Troponin I High Sensitivity 697 ng/L (4-75) 1205 ng/L (4-75) Triglycerides Level 154 mg/dL (0-150) Cholesterol Level 293 mg/dL (0-200) LDL Cholesterol, Calculated 213 mg/dL (0-100) VLDL Cholesterol, Calculated 31 mg/dL (0-40) Non-HDL Cholesterol Calculated 244 mg/dL (0-129) HDL Cholesterol 49 mg/dL (40-60) Cholesterol/HDL Ratio 6.0 Thyroid Stimulating Hormone (TSH) 0.791 uIU/mL (0.358-3.74) Laboratory Tests Test 12/25/21 14:30 Troponin I High Sensitivity 1205 ng/L (4-75) Medications Active Scripts Medications Dose Route/Sig Max Daily Dose Days Date Category Tylenol (Acetaminophen) 325 Mg Tablet 325 Tab PO QID PRN 12/25/21 Reported Prilosec Otc (Omeprazole Magnesium) 20 Mg Tablet. 1 Tab PO DAILY 30 12/25/21 Reported Hydrocodone-Apap 5-325 (Hydrocodone Bit/Acetaminophen) 1 Tab Tablet 1 Tab PO PRN Q6HRS PRN 12/25/21 Reported Karla-Yamileth Tablet (Folic Acid/Vitamin B Comp W-C) 0.8 Mg Tablet 1 Tab PO DAILY 08/16/20 Rx Metoprolol Tartrate 50 Mg Tablet 1 Tab PO BID 08/10/20 Reported Aspirin 81 Mg Tab.chew 1 Tab PO DAILY 08/10/20 Reported Albuterol Sulfate Neb Soln (Albuterol Sulfate) 2.5 Mg/3 Ml Vial.neb 2.5 Mg NEB PRN Q4HRS PRN 05/05/16 Reported Vitamin C (Ascorbic Acid) 500 Mg Tablet 500 Mg PO BID 05/05/16 Reported Atorvastatin Calcium 10 Mg Tablet 10 Mg PO HS 05/05/16 Reported Impression . IMPRESSION: 1. Acute on chronic hypoxic respiratory failure secondary to asymmetric congestive heart failure, triggered by atrial fibrillation with rapid ventricular response. 2. Atrial fibrillation with rapid ventricular response. 3. End-stage renal disease, on hemodialysis, currently undergoing increased ultrafiltration. 4. Abnormal chest x-ray with vascular congestion on the right side along with right lower lobe effusion. He also has a pocket of air on the left side, which could be a loculated pneumothorax versus emphysematous blebs. Plan . Updated 12/26/2021 Continue supplemental oxygen to keep oxygen saturations greater than 90%, wears 3 L nasal cannula at home, currently on 5 L nasal cannula, wean as tolerated Bronchodilators Follow nephrology recommendations for hemodialysis Follow cardiology recommendations in regards to atrial fibrillation with rapid ventricular response, most recent echocardiogram showed a preserved EF Repeat chest x-ray on Thursday Out of bed as tolerated Discussed with RN RECOMMENDATIONS: 1. Discussed with the patient. At this time, would recommend to continue ultrafiltration with hemodialysis. 2. Follow chest x-rays. 3. May need a CT chest if radiographic findings does not improve. I will also assess the need for any future thoracentesis. 4. Monitor white cell count, likely reactive. At this point, withhold antibiotic. 5. Follow Cardiology recommendations regarding atrial fibrillation with RVR. Currently on Cardizem. 6. Follow renal function. 7. Discussed with RN. CORI MON MD Dec 26, 2021 08:38
--- NOTE | 2021-12-26 08:59 | PDOC ---
ELSY SINGLETON BIOLOGY MANAGER 12/26/21 0859: CARDIO Progress Notes Date and Time Date of Service 12/26/21 Time of Evaluation 1145 Subjective Subjective: No Chest Pain, No shortness of breath, No Palpitations Vitals Vitals Vital Signs Date Time Temp Pulse Resp B/P (MAP) Pulse Ox O2 Delivery O2 Flow Rate FiO2 12/26/21 08:40 96 Nasal Cannula 5.0 12/26/21 08:12 96 125/76 12/26/21 08:10 17 12/26/21 02:14 97.5 97.5 Weight Weight [ ] Input and Output Intake and Output Intake and Output 12/26/21 07:00 Intake Total 1730 ml Balance 1730 ml Intake Oral 1730 ml Laboratory Labs Laboratory Tests Test 12/25/21 14:30 Troponin I High Sensitivity 1205 ng/L (4-75) Physical Exam HEENT: Neck Supple W Full Motion Chest: Symmetric LUNGS: Other (diminished throughout ) Heart: RRR Abdomen: Soft N/T Extremities: No Edema Neurology: alert, oriented, follow commands Assessment Assessment 1. Acute on chronic respiratory failure; multifactorial with CHF, cor pulmonale, AFIB with RVR. [place] COPD and recent COVID infection 2. Acute and chronic diastolic CHF; Echo 2019 with LVEF 50% as noted above 3. AFIB with RVR; ? new onset. Converted back to SR with Cardizem bolus. Is maintaining SR 4. Elevated troponin; initial high sensitivity trop 217. Most probably type II, demand ischemia. [facility] 2015 without significant coronary artery disease. Echo with preserved LV systolic function 5. Hypertension; low end with last VS check 6. Hyperlipidemia; statin 6. Pulm HTN; Echo with moderate to severe RV dilation and right ventricular hypertrophy. PAP 50 mmHg 7. Hypomagnesemia; replaced Recommendations Monitor BP trend Continue Metoprolol for rate control as BP allows Fluid offloading via HD ASA therapy Outpatient event monitor arranged to assess AFIB burden, guide therapy. Outpatient ischemic evaluation Follow up in our office has been scheduled Justicifation of Admission Dx: Justifications for Admission: Justification of Admission Dx: Yes CHF: Hemodynamic Instability Acute Renal Failure: RF Can't Be Managed Outpt Chronic Renal Failure: Hemodynamic Instability Sepsis: Altered Mental Status NIELS GRAFF MD 12/26/21 8158: CARDIO Progress Notes Plan Plan The patient was seen and interviewed as well as examined at the bedside. The chart was reviewed. The case was discussed. Agree with the plan of care. ELSY SINGLETON APRN Dec 26, 2021 08:59 NIELS GRAFF MD Dec 26, 2021 16:58
[2021-12-26 11:00] VITALS: BP 84/52
--- NOTE | 2021-12-26 11:37 | PDOC ---
DATE OF SERVICE DATE: 12/26/21 TIME: 11:35 SUBJECTIVE ROS Stable, No complaints Denies SOB OBJECTIVE Vital Signs Vital Signs Date Time Temp Pulse Resp B/P (MAP) Pulse Ox O2 Delivery O2 Flow Rate FiO2 12/26/21 08:40 96 Nasal Cannula 5.0 12/26/21 08:12 96 125/76 12/26/21 08:10 17 12/26/21 07:00 98.4 98.4 I & 0 Intake and Output 12/26/21 07:00 Intake Total 1730 ml Balance 1730 ml Intake Oral 1730 ml PHYSICAL EXAM Physical Exam General : NAD HENT: Normocephalic, atraumatic,OM moist Neck: supple, Cardiovascular irregularly irregular rhythm, no murmurs Lungs No use of accessory muscles , decreased at bases Abdomen: Bowel sounds normal, soft, no tenderness, no masses Skin: C dry, no erythema, no rash. : NoSP or CVA tenderness. Extremities: no cyanosis, no clubbing trace bilateral pedal edema. AV Fistual left upper extremity Neurologic: Alert and oriented X 3, normal motor function, normal sensory function, no focal deficits noted. Psychologic: Affect normal, judgement normal, mood normal. Vital Signs Vital Signs Date Time Temp Pulse Resp B/P (MAP) Pulse Ox O2 Delivery O2 Flow Rate FiO2 12/25/21 08:57 100 144/81 12/25/21 08:57 96 Nasal Cannula 6.0 12/25/21 07:00 97.2 26 97.2 DIAGNOSIS/ASSESSMENT Assessment & Plan ESRD - On HD since Aug 2020 Following [facility] ; MWF @ [facility] [place] . No indication for HD today . DC per primary and cardiology HTN BP very high POA, currently stable. Antihypertensives Hypomagnesemia - Normal Anemia- Hgb at goal, No indication for BREN currently Acute on chronic hypoxic respiratory failure - likely secondary to congestive heart failure, triggered by atrial fibrillation with rapid ventricular response. Atrial fibrillation with rapid ventricular response - resolved with IV cardizem. Cardiology consulted Acute and chronic diastolic CHF; Echo 2019 with LVEF 50% Pulm HTN; echo 2020 PAP 44 mmHg and RV dilation COMMENT/RELEVANT DATA Meds Current Medications Medications (Trade) Dose Ordered Sig/Edith Start Time Stop Time Status Last Admin Dose Admin Acetaminophen/ Hydrocodone Bitart (Lortab 5/325) 1 tab PRN Q6HRS PRN 12/25/21 08:45 12/26/21 08:10 1 TAB Albuterol Sulfate (Ventolin Neb Soln) 2.5 mg PRN Q4HRS PRN 12/25/21 08:45 Ascorbic Acid (Vitamin C) 500 mg BID 12/25/21 09:00 12/26/21 08:10 500 MG Aspirin (Aspirin Chewable) 81 mg DAILY 12/25/21 09:00 12/26/21 08:10 81 MG Atorvastatin Calcium (Lipitor) 10 mg HS 12/25/21 21:00 12/25/21 21:30 10 MG Diltiazem HCl (Cardizem Iv Push) 20 mg 1X ONCE 12/24/21 22:45 12/24/21 22:46 DC 12/24/21 22:50 20 MG Diltiazem HCl 125 mg/Dextrose 125 ml @ 5 mls/hr CONT PRN 12/24/21 22:45 Diltiazem HCl 125 mg/Sodium Chloride 125 ml @ 5 mls/hr CONT PRN 12/24/21 22:45 Cancel Info (PHARMACY MONITORING -- do not chart) 1 each PRN DAILY PRN 12/25/21 08:30 Metoprolol Tartrate (Lopressor) 50 mg 1X ONCE 12/25/21 14:00 12/25/21 14:02 DC 12/25/21 14:32 50 MG Pantoprazole Sodium (Protonix) 40 mg DAILYAC 12/25/21 09:00 12/26/21 05:40 40 MG Sodium Chloride 1,000 ml @ 400 mls/hr Q2H30M PRN 12/25/21 08:30 12/25/21 20:29 DC Vitamin B Complex/ Vitamin C (Karla-Yamileth) 1 tab DAILY 12/25/21 09:00 12/26/21 08:10 1 TAB Lab Laboratory Tests Test 12/25/21 14:30 Troponin I High Sensitivity 1205 ng/L (4-75) Results All relevant outside records, renal labs, imaging studies, telemetry/EKG's were reviewed. Justicifation of Admission Dx: Justifications for Admission: Justification of Admission Dx: Yes CHF: Hemodynamic Instability Acute Renal Failure: RF Can't Be Managed Outpt Chronic Renal Failure: Hemodynamic Instability Sepsis: Altered Mental Status CHAPITO SWIFT MD Dec 26, 2021 11:37
--- NOTE | 2021-12-26 13:10 | PDOC ---
[employer] PROGRESS NOTE Date of Service DOS: DATE: 12/26/21 TIME: 13:04 Chief Complaint Chief Complaint Acute on chronic hypoxic respiratory failure - likely secondary to congestive heart failure, triggered by atrial fibrillation with rapid ventricular response. Atrial fibrillation with rapid ventricular response - resolved with IV cardizem. Cardiology consulted ESRD - on HD MWF. Nephrology consulted Abnormal CXR - due to prior asbestosis, COPD and resolving COVID 19 infection Acute and chronic diastolic CHF; Echo 2019 with LVEF 50% Elevated troponin - likely type II, demand ischemia. [facility] 2015 without significant coronary artery disease per cardiology HTN - cont home meds HLD - statin Pulm HTN; echo 2019 PAP 44 mmHg and RV dilation Hypomagnesemia - replaced FEN - Renal cardiac diet PPX - heparin FULL CODE Dispo - inpatient History of Present Illness History of Present Illness Mr Amin is an 81 yo male with history of afib, heart failure, COPD, and ESRD on hemodialysis who presents to ED via EMS with shortness of breath. At 0900 on 12/24/21 he started to develop shortness of breath while watching TV and notes his blood pressure was systolic in the 200s. He normally wears 3 L/min nasal cannula oxygen but upon EMS arrival, spO2 was in the 70s and was placed on NRB. He denies sick contacts, fevers, chills, cough, nausea, vomiting, and abdominal pain. He receives hemodialysis on MWF and produces a small amount of urine. Of note, he was positive for COVID about a month ago at [facility] and has been rehabilitating in SNF. He notes he thinks the food at assisted facility was too salty. 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 He was noted to be in atrial fibrillation with rapid ventricular response, given IV cardizem bolus and improved, seen on dialysis in sinus rhythm. Chest radiograph with bibasilar airspace disease Labs WBC 12, Hb 11.3, platelets 301, NA 139, K3.9, BUN 23, creatinine 6.4, glucose 138, calcium 7.7, magnesium 1.7, albumin 2.9 LFTs otherwise within normal laboratory limits, high-sensitivity troponin is 217, NT proBNP is greater than 35,000, rapid COVID-19 is negative, ABG on 9 L 7.37/41/72. Admitted for further care with pulmonology cardiology and nephrology consultation. 12/26: Seen bedside in sinus rhythm on 3 L nasal cannula O2. Still feeling very weak but able to walk without assistance. No chest pain minimal baseline shortness of breath. Repeat echo with increased right-sided pressures and large left ventricle normal ejection fraction. Vitals/I&O Vitals/I&O: Vital Signs Date Time Temp Pulse Resp B/P (MAP) Pulse Ox O2 Delivery O2 Flow Rate FiO2 12/26/21 11:00 98.3 76 20 84/52 (63) 93 Nasal Cannula 4.0 98.3 I & O 12/25/21 12/25/21 12/26/21 15:00 23:00 07:00 Intake Total 180 ml 1150 ml 400 ml Balance 180 ml 1150 ml 400 ml Physical Exam General: Alert, Oriented X3, Cooperative, moderate distress Lungs: Crackles (RLL) Extremities: No clubbing, No cyanosis, No edema, Normal pulses, No tenderness/swelling Skin: No rashes, No breakdown, No significant lesion Labs Labs: Laboratory Tests Test 12/25/21 14:30 Troponin I High Sensitivity 1205 ng/L (4-75) Assessment and Plan Assessmemt and Plan Problems Medical Problems: (1) Atrial fibrillation with RVR Status: Acute (2) CHF exacerbation Status: Acute (3) Renal failure Status: Acute Comment Review of Relevant I have reviewed the following items joe (where applicable) has been applied. Medications: Current Medications Medications (Trade) Dose Ordered Sig/Edith Route PRN Reason Start Time Stop Time Status Last Admin Dose Admin Atorvastatin Calcium (Lipitor) 10 mg HS PO 12/25/21 21:00 12/25/21 21:30 Metoprolol Tartrate (Lopressor) 100 mg BID PO 12/25/21 21:00 12/26/21 08:12 Metoprolol Tartrate (Lopressor) 50 mg 1X ONCE PO 12/25/21 14:00 12/25/21 14:02 DC 12/25/21 14:32 Images: The left ventricle is normal size. The left ventricular systolic function is normal and the ejection fraction is within normal range. LV ejection fraction of 50 to 55%. There is mild concentric left ventricular hypertrophy. Doppler and Color Flow revealed no significant aortic regurgitation. There is no significant aortic valvular stenosis. Doppler and Color-flow revealed mild to moderate mitral regurgitation. Doppler and Color Flow revealed moderate tricuspid regurgitation. The PA pressure was estimated at 50 mmHg. Pleural effusion noted. Justifications for Admission Other Justification CARMEN GOEL MD Dec 26, 2021 13:10
[2021-12-26] MEDS ORDERED: HYDR-2761 PO (13:17)
[2021-12-26] MEDS ORDERED: METO100T7 PO ×2 (13:17→13:43)
--- NOTE | 2021-12-26 13:18 | SNU/HH DC ---
DISCHARGE ORDERS DISCHARGE INFORMATION: DISCHARGE DATE: Dec 26, 2021 FINAL DIAGNOSIS Problems Medical Problems: (1) Atrial fibrillation with RVR Status: Acute (2) CHF exacerbation Status: Acute (3) Renal failure Status: Acute CONDITION ON DISCHARGE: Stable CODE STATUS: Code Status: Full PRISON: SNF STAY <30 DAYS: Yes POST DISCHARGE ORDERS: ACTIVITY ORDERS: Activity as tolerated WEIGHT BEARING STATUS: No restrictions DIET AFTER DISCHARGE: Renal WOUND/INCISION CARE: Change dressing CHECKS AFTER DISCHARGE: CHECKS AFTER DISCHARGE: Check blood press - daily, Weigh Yourself Daily FOLLOW-UP: Additional Instructions: Call to follow up with cardiology [id number] [facility], [address] [place] [address] TREATMENT/EQUIPMENT ORDERS: ADAPTIVE EQUIPMENT NEEDED: Front wheeled walker, Walker RESPIRATORY EQUIPMENT NEEDED: Oxygen (3L/min) Physical Therapy For: Evalulation/Treatment Occupational Therapy For: Evaluation/Treatment DISCHARGE MEDICATIONS: Home Meds Active Scripts Metoprolol Tartrate (METOPROLOL TARTRATE) 100 Mg Tablet, 0.5 TAB PO BID for Afib for 30 Days, #30 TAB 1 Refill Prov:CARMEN GOEL MD 12/26/21 Hydrocodone Bit/Acetaminophen (HYDROCODONE-APAP 5-325 ) 1 Tab Tablet, 1 TAB PO PRN Q6HRS PRN for PAIN for 6 Days, #20 TAB 0 Refills Prov:CARMEN GOEL MD 12/26/21 Folic Acid/Vitamin B Comp W-C (JENNY-ZHOU TABLET) 0.8 Mg Tablet, 1 TAB PO DAILY for renal, #30 TAB Prov:TAHIR VARNER MD 08/16/20 Reported Medications Acetaminophen (TYLENOL) 325 Mg Tablet, 325 TAB PO QID PRN for PAIN, #60 TAB 2 Refills 12/25/21 Omeprazole Magnesium (PRILOSEC OTC) 20 Mg Tablet.dr, 1 TAB PO DAILY for GERD for 30 Days, #30 TAB 0 Refills 12/25/21 Aspirin (ASPIRIN) 81 Mg Tab.chew, 1 TAB PO DAILY for HEART, #30 TAB 3 Refills 08/10/20 Albuterol Sulfate (ALBUTEROL SULFATE NEB SOLN) 2.5 Mg/3 Ml Vial.neb, 2.5 MG NEB PRN Q4HRS PRN for SHORTNESS OF BREATH, EACH 0 Refills 05/05/16 Ascorbic Acid (VITAMIN C) 500 Mg Tablet, 500 MG PO BID 05/05/16 Atorvastatin Calcium (ATORVASTATIN CALCIUM) 10 Mg Tablet, 10 MG PO HS for FOR CHOLESTEROL, #30 TAB 0 Refills 05/05/16 Discontinued Reported Medications Metoprolol Tartrate (METOPROLOL TARTRATE) 50 Mg Tablet, 1 TAB PO BID for HTN 08/10/20 CARMEN GOEL MD Dec 26, 2021 13:18
--- NOTE | 2021-12-26 13:21 | PDOC3 ---
Discharge Summary Visit Information Date of Admission: Dec 24, 2021 Date of Discharge: Dec 26, 2021 Admitting Diagnosis: Atrial fibrillation with RVR Final Diagnosis Problems Medical Problems: (1) Atrial fibrillation with RVR Status: Acute (2) CHF exacerbation Status: Acute (3) Renal failure Status: Acute Brief Hospital Course Allergies Allergies Coded Allergies Type Severity Reaction Last Updated Verified No Known Medication Allergies Allergy Unknown 06/02/16 Yes Vital Signs Vital Signs Date Time Temp Pulse Resp B/P (MAP) Pulse Ox O2 Delivery O2 Flow Rate FiO2 12/26/21 11:00 98.3 76 20 84/52 (63) 93 Nasal Cannula 4.0 98.3 Lab Results Laboratory Tests Test 12/24/21 21:20 12/24/21 21:25 12/24/21 23:00 12/25/21 03:40 O2 Saturation 92 % (92-99) 92 % (92-99) Arterial Blood pH 7.37 (7.35-7.45) 7.44 (7.35-7.45) Arterial Blood pCO2 at Patient Temp 41 mmHg (35-46) 42 mmHg (35-46) Arterial Blood pO2 at Patient Temp 72 mmHg (65-108) 67 mmHg (65-108) Arterial Blood HCO3 23 mmol/L (21-28) 28 mmol/L (21-28) Arterial Blood Base Excess -2 mmol/L (-3-3) 3 mmol/L (-3-3) Oxyhemoglobin 91.4 % Methemoglobin 0.3 % (0.0-1.9) Carbon Monoxide, Quantitative 0.3 % (0.0-1.9) FiO2 56 (9l nrb) 40 (bipap) White Blood Count 12.0 x10^3/uL (4.0-11.0) Red Blood Count 3.83 x10^6/uL (4.30-5.70) Hemoglobin 11.3 g/dL (13.0-17.5) Hematocrit 35.8 % (39.0-53.0) Mean Corpuscular Volume 93 fL (79-100) Mean Corpuscular Hemoglobin 30 pg (25-35) Mean Corpuscular Hemoglobin Concent 32 g/dL (31-37) Red Cell Distribution Width 14.7 % (11.5-14.5) Platelet Count 301 x10^3/uL (140-400) Neutrophils (%) (Auto) 86 % (31-73) Lymphocytes (%) (Auto) 9 % (24-48) Monocytes (%) (Auto) 4 % (0-9) Eosinophils (%) (Auto) 0 % (0-3) Basophils (%) (Auto) 1 % (0-3) Neutrophils # (Auto) 10.4 x10^3/uL (1.8-7.7) Lymphocytes # (Auto) 1.1 x10^3/uL (1.0-4.8) Monocytes # (Auto) 0.4 x10^3/uL (0.0-1.1) Eosinophils # (Auto) 0.0 x10^3/uL (0.0-0.7) Basophils # (Auto) 0.1 x10^3/uL (0.0-0.2) Sodium Level 139 mmol/L (136-145) Potassium Level 3.9 mmol/L (3.5-5.1) Chloride Level 97 mmol/L (98-107) Carbon Dioxide Level 28 mmol/L (21-32) Anion Gap 14 (6-14) Blood Urea Nitrogen 23 mg/dL (8-26) Creatinine 6.4 mg/dL (0.7-1.3) Estimated GFR (Cockcroft-Gault) 10.2 BUN/Creatinine Ratio 4 (6-20) Glucose Level 138 mg/dL (70-99) Calcium Level 7.7 mg/dL (8.5-10.1) Magnesium Level 1.7 mg/dL (1.8-2.4) Total Bilirubin 0.7 mg/dL (0.2-1.0) Aspartate Amino Transf (AST/SGOT) 29 U/L (15-37) Alanine Aminotransferase (ALT/SGPT) 23 U/L (16-63) Alkaline Phosphatase 58 U/L (46-116) Troponin I High Sensitivity 217 ng/L (4-75) VM-Szt-E-Type Natriuretic Peptide > 60224 pg/mL (0-449) Total Protein 8.5 g/dL (6.4-8.2) Albumin 2.9 g/dL (3.4-5.0) Albumin/Globulin Ratio 0.5 (1.0-1.7) Coronavirus (COVID-19)(PCR) Positive (NOT DETECTD) SARS-CoV-2 Antigen (Rapid) Negative (NEGATIVE) Test 12/25/21 04:25 12/25/21 14:30 Sodium Level 143 mmol/L (136-145) Potassium Level 4.4 mmol/L (3.5-5.1) Chloride Level 100 mmol/L (98-107) Carbon Dioxide Level 31 mmol/L (21-32) Anion Gap 12 (6-14) Blood Urea Nitrogen 25 mg/dL (8-26) Creatinine 6.9 mg/dL (0.7-1.3) Estimated GFR (Cockcroft-Gault) 9.4 Glucose Level 90 mg/dL (70-99) Calcium Level 7.8 mg/dL (8.5-10.1) Magnesium Level 1.8 mg/dL (1.8-2.4) Troponin I High Sensitivity 697 ng/L (4-75) 1205 ng/L (4-75) Triglycerides Level 154 mg/dL (0-150) Cholesterol Level 293 mg/dL (0-200) LDL Cholesterol, Calculated 213 mg/dL (0-100) VLDL Cholesterol, Calculated 31 mg/dL (0-40) Non-HDL Cholesterol Calculated 244 mg/dL (0-129) HDL Cholesterol 49 mg/dL (40-60) Cholesterol/HDL Ratio 6.0 Thyroid Stimulating Hormone (TSH) 0.791 uIU/mL (0.358-3.74) Laboratory Tests Test 12/25/21 14:30 Troponin I High Sensitivity 1205 ng/L (4-75) Brief Hospital Course Mr Amin is an 81 yo male with history of afib, heart failure, COPD, and ESRD on hemodialysis who presents to ED via EMS with shortness of breath. At 0900 on 12/24/21 he started to develop shortness of breath while watching TV and notes his blood pressure was systolic in the 200s. He normally wears 3 L/min nasal cannula oxygen but upon EMS arrival, spO2 was in the 70s and was placed on NRB. He denies sick contacts, fevers, chills, cough, nausea, vomiting, and abdominal pain. He receives hemodialysis on MWF and produces a small amount of urine. Of note, he was positive for COVID about a month ago at [facility] and has been rehabilitating in SNF. He notes he thinks the food at [facility] was too salty. 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 He was noted to be in atrial fibrillation with rapid ventricular response, given IV cardizem bolus and improved, seen on dialysis in sinus rhythm. Chest radiograph with bibasilar airspace disease Labs WBC 12, Hb 11.3, platelets 301, NA 139, K3.9, BUN 23, creatinine 6.4, glucose 138, calcium 7.7, magnesium 1.7, albumin 2.9 LFTs otherwise within normal laboratory limits, high-sensitivity troponin is 217, NT proBNP is greater than 35,000, rapid COVID-19 is negative, ABG on 9 L 7.37/41/72. Admitted for further care with pulmonology cardiology and nephrology consultation. 12/26: Seen bedside in sinus rhythm on 3 L nasal cannula O2. Still feeling very weak but able to walk without assistance. No chest pain minimal baseline shortness of breath. Repeat echo with increased right-sided pressures and large left ventricle normal ejection fraction. Try to increase metoprolol to 100 mg twice daily however his blood pressure did not tolerate this well and decreased back to his regular dose of 50 mg twice daily. Incidentally is COVID-19 PCR remains positive though his Covid symptoms have essentially resolved. We will go back to [facility] for continued rehabilitation and strengthening. Consults: Cardiology, Nephrology, Pulmonology Problem list: Acute on chronic hypoxic respiratory failure - likely secondary to congestive heart failure, triggered by atrial fibrillation with rapid ventricular response. Atrial fibrillation with rapid ventricular response - resolved with IV cardizem. Cardiology consulted ESRD - on HD MWF. Nephrology consulted Abnormal CXR - due to prior asbestosis, COPD and resolving COVID 19 infection Acute and chronic diastolic CHF; Echo 2019 with LVEF 50% Elevated troponin - likely type II, demand ischemia. [facility] 2016 without significant coronary artery disease per cardiology HTN - cont home meds HLD - statin Pulm HTN; echo 2020 PAP 44 mmHg and RV dilation Hypomagnesemia - replaced Recent COVID 19 - incidentally PCR still positive, consider him recovered symptomatically Greater than 30 minutes spent on d/c to SNF Discharge Information Condition at Discharge: Improved Follow Up: Weeks (1) Disposition/Orders: D/C to Another Facility Scheduled Ascorbic Acid (Vitamin C) 500 Mg Tablet, 500 MG PO BID, (Reported) Entered as Reported by: SHAYLA CHEEMA RN on 05/05/16904 Last Action: Continued on 12/25/21839 by CARMEN GOEL MD Aspirin (Aspirin) 81 Mg Tab.chew, 1 TAB PO DAILY for HEART, #30 Ref 3 (Reported) Entered as Reported by: Destini Leong on 08/10/202211 Last Action: Continued on 12/25/21839 by CARMEN GOEL MD Atorvastatin Calcium (Atorvastatin Calcium) 10 Mg Tablet, 10 MG PO HS for FOR CHOLESTEROL, #30 Ref 0 (Reported) Entered as Reported by: SHAYLA CHEEMA RN on 05/05/16904 Last Action: Continued on 12/25/21839 by CARMEN GOEL MD Folic Acid/Vitamin B Comp W-C (Karla-Yamileth Tablet) 0.8 Mg Tablet, 1 TAB PO DAILY for renal, #30 Prescribed by: TAHIR VARNER on 08/16/20 1018 Last Action: Continued on 12/25/21839 by CARMEN GOEL MD Metoprolol Tartrate (Metoprolol Tartrate) 100 Mg Tablet, 0.5 TAB PO BID for Afib for 30 Days, #30 Ref 1 Prescribed by: CARMEN GOEL MD on 12/26/21 1343 Omeprazole Magnesium (Prilosec Otc) 20 Mg Tablet.dr, 1 TAB PO DAILY for GERD for 30 Days, #30 Ref 0 (Reported) Entered as Reported by: LEWIS ROMO on 12/25/2123 Last Action: Converted on 12/25/21839 by CARMEN GOEL MD Scheduled PRN Acetaminophen (Tylenol) 325 Mg Tablet, 325 TAB PO QID PRN for PAIN, #60 Ref 2 (Reported) Entered as Reported by: LEWIS ROMO on 12/25/2123 Last Action: Reviewed on 12/25/21805 by JUDY MARINA RN Albuterol Sulfate (Albuterol Sulfate Neb Soln) 2.5 Mg/3 Ml Vial.neb, 2.5 MG NEB PRN Q4HRS PRN for SHORTNESS OF BREATH, Ref 0 (Reported) Entered as Reported by: SHAYLA CHEEMA RN on 05/05/16904 Last Action: Continued on 12/25/21839 by CARMEN GOEL MD Hydrocodone Bit/Acetaminophen (Hydrocodone-Apap 5-325 ) 1 Tab Tablet, 1 TAB PO PRN Q6HRS PRN for PAIN for 6 Days, #20 Ref 0 Prescribed by: CARMEN GOEL MD on 12/26/21 1317 Discontinued Medications Metoprolol Tartrate (Metoprolol Tartrate) 50 Mg Tablet, 1 TAB PO BID for HTN, (Reported) Discontinued Reason: Prescription changed Entered as Reported by: Destini Leong on 08/10/202213 Last Action: Continued on 12/25/21 0840 by CARMEN GOEL MD Justicifation of Admission Dx: Justifications for Admission: Justification of Admission Dx: Yes CHF: Hemodynamic Instability Acute Renal Failure: RF Can't Be Managed Outpt Chronic Renal Failure: Hemodynamic Instability Sepsis: Altered Mental Status CARMEN GOEL MD Dec 26, 2021 13:21
[2021-12-26] MEDS ORDERED: IV NORMAL SALINE 500ML BAG 500 ML IV ONE (13:30)
--- NOTE | 2021-12-26 14:57 | NUR ---
SS following up with discharge planning. SS reviewed pt chart and discussed with pt RN. Pt is currently requiring oxygen at 3-5 liters nasal canula. COVID19 recovered. PT/OT recommended [facility] unit. Pt is skilled resident from [facility], ; fax [phone]. Pt has outpatient hemodialysis Thursday, Thursday, and Thursday. Discharge orders received and sent to [facility]. Pt will discharge today and go to [facility] at 1530. [facility] to provide transportation. Pt and pt's RN notified. Packet placed on chart.
[2021-12-26 15:00] VITALS: BP 102/67
--- NOTE | 2021-12-26 15:45 | NUR ---
Discharge Note: GONZALEZ BEE Discharge instructions and discharge home medications reviewed with Patient and a copy given. All questions have been answered and understanding verbalized. The following instructions and handouts were given: malnutrition. Patient discharged to [facility] with transport via wheelchair.
[2021-12-26] MEDS ORDERED: METOPROLOL TART IMMED RELEASE 50 MG TABLET. PO SCH (21:00)
== END 2021-12-26 15:45 | DRG 189 ==
LOC: ER 21:06 → 6 SOUTH 21:59
PROVIDERS: ADMIT Internal Medicine; ATTEND Internal Medicine
PROC: 5A09357 Assistance with Respiratory Ventilation, Less than 24 Consecutive Hours, Continuous Positive Airway Pressure (ICD-10-PCS; 2021-12-24)
PROC: 5A1D70Z Performance of Urinary Filtration, Intermittent, Less than 6 Hours Per Day (ICD-10-PCS; principal; 2021-12-25)
DX: J96.21 Acute and chronic respiratory failure with hypoxia (principal); U07.1 COVID-19; I50.33 Acute on chronic diastolic (congestive) heart failure; N18.6 End stage renal disease; I13.2 Hypertensive heart and chronic kidney disease with heart failure and with stage 5 chronic kidney disease, or end stage renal disease; I24.8 Other forms of acute ischemic heart disease; I48.91 Unspecified atrial fibrillation; E78.00 Pure hypercholesterolemia, unspecified; E78.5 Hyperlipidemia, unspecified; E83.42 Hypomagnesemia; F03.90 Unspecified dementia, unspecified severity, without behavioral disturbance, psychotic disturbance, mood disturbance, and anxiety; F17.200 Nicotine dependence, unspecified, uncomplicated; I27.20 Pulmonary hypertension, unspecified; I27.81 Cor pulmonale (chronic); Z96.649 Presence of unspecified artificial hip joint; K21.9 Gastro-esophageal reflux disease without esophagitis; I95.9 Hypotension, unspecified; D64.9 Anemia, unspecified; J44.9 Chronic obstructive pulmonary disease, unspecified; Z82.49 Family history of ischemic heart disease and other diseases of the circulatory system; Z83.3 Family history of diabetes mellitus; Z85.46 Personal history of malignant neoplasm of prostate; Z86.16 Personal history of COVID-19; Z87.11 Personal history of peptic ulcer disease; Z99.2 Dependence on renal dialysis
CPT/HCPCS: 36415; 36600; 71045; 80048; 80053; 80061; 82805; 83735; 83880; 84443; 84484; 85025; 87426; 93005; 93306; 94660; 94760; 96374; J3490; J7040; U0003; 97535-GO; 99285-25; C8929; G0378